=== PATIENT | female | born 2000 | race Caucasian/White ===

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

== ENCOUNTER → 2021-01-19 17:12 | Outpatient (CLI) | payer MEDICAID, SELFPAY ==
[2021-01-19 18:06] LABS: HCG,Quantitative 2479 mIU/ml (0-5.42)
== END ==
PROVIDERS: Visit Provider Obstetrics & Gynecology
DX: Z34.90 Encounter for supervision of normal pregnancy, unspecified, unspecified trimester (principal)
CPT/HCPCS: 36415; 84702

== ENCOUNTER → 2021-01-21 17:24 | Outpatient (CLI) | payer MEDICAID, SELFPAY ==
[2021-01-21 18:30] LABS: HCG,Quantitative 5449 mIU/ml (0-5.42)
== END ==
PROVIDERS: Visit Provider Obstetrics & Gynecology
DX: Z34.90 Encounter for supervision of normal pregnancy, unspecified, unspecified trimester (principal)
CPT/HCPCS: 36415; 84702

== ENCOUNTER → 2021-01-31 12:46 | Outpatient (CLI) | payer MEDICAID, SELFPAY ==
--- NOTE | 2021-01-31 12:46 | US_ITS ---
PROCEDURE: US OB <= 14 WEEKS FETUS CLINICAL INDICATION: Early OB at 6+ weeks- COMPARISON: US OBFEMAT US OB /maternal detail from 08/07/2018 FINDINGS: An intrauterine gestational sac is present with a pole with a crown-rump length of 0.37 cm correlating to gestational age of 6 weeks 1 day. heart tones are present with an FHR of 116 BPM. Yolk sac is noted. IMPRESSION: Live IUP at 6 weeks 1 day Estimated due date by Ultrasound is 09/25/2021 Dictated by: Trey Osei MD 02/01/2021 10:43 Trey Osei MD in [facility] 02/01/2021 10:43
== END ==
PROVIDERS: PCP Nurse Practitioner Family; Visit Provider Obstetrics & Gynecology
DX: Z34.90 Encounter for supervision of normal pregnancy, unspecified, unspecified trimester (principal)
CPT/HCPCS: 76801

== ENCOUNTER → 2021-02-22 15:23 | Outpatient (CLI) | payer MEDICAID, SELFPAY ==
[2021-02-22 15:43] LABS: Basophils # 0.1 K/mm3 (0-0.2); Basophils % 0.5 % (0.1-2.0); Eosinophils # 0.5 K/mm3 (0.0-0.4); Hematocrit 39.5 % (37.0-47.0); Hemoglobin 13.2 g/dL (12.2-16.2); Lymphocytes % 24.1 % (10-50); Mean Corpuscular HGB Conc 33.4 g/dL (31.8-35.4); Mean Corpuscular Hemoglobin 29.1 pg (27.0-31.2); Mean Corpuscular Volume 87.3 fl (81-99); Mean Platelet Volume 7.1 fl (7.4-10.4); Monocytes # 0.6 K/mm3 (0.1-1.0); Monocytes % 4.5 % (1.7-9.3); Neutrophils # 8.4 K/mm3 (1.8-7.8); Neutrophils % 66.9 % (37.0-80.0); Platelet Count 311 K/mm3 (142-424); Red Blood Count 4.52 M/mm3 (4.20-5.40); Red Cell Distribution Width 13.6 % (11.5-17.5); White Blood Count 12.6 K/mm3 (4.8-10.8)
[2021-02-25 06:18] LABS: HIV Screen 4th Generation wRfx Non Reactive (Non Reactive); Hepatitis B Surface Antigen Negative (Negative); Hepatitis C Antibody <0.1 s/co ratio (0.0-0.9); Rapid Plasma Reagin Ab Titer Non Reactive (NonRea<1:1)
[2021-02-25 18:01] LABS: Rubella Antibodies, IgG 3.56 index (Immune >0.99)
== END ==
PROVIDERS: Visit Provider Obstetrics & Gynecology
DX: Z34.90 Encounter for supervision of normal pregnancy, unspecified, unspecified trimester (principal)
CPT/HCPCS: 36415; 85025; 86592; 86703; 86762; 86850; 87340; 87380; G0432

== ENCOUNTER → 2021-05-04 13:49 | Outpatient (CLI) | payer MEDICAID, SELFPAY ==
--- NOTE | 2021-05-04 13:52 | US_ITS ---
PROCEDURE: US OB >= 14 WEEKS FETUS CLINICAL INDICATION: OB complete COMPARISON: US US OB <= 14 WEEKS FETUS from 01/31/2021 FINDINGS: There is a single live intrauterine gestation which is in breech presentation. Placenta is anterior and grade 1. heart and body motion noted. Cervix is closed and measures 3 cm.. Complete survey performed and was unremarkable on the submitted images as in PACS. No discrete anomalies identified on survey imaging by technologist. Active fetus. Three-vessel cord with satisfactory umbilical cord insertion. 4- chamber heart noted. Survey of brain & ventricles Unremarkable. Face and neck survey unremarkable. Diaphragm and chest views unremarkable. Abdomen: Both kidneys noted and unremarkable. Stomach noted and satisfactory. Spine: Survey of the spine satisfactory with no anomalies identified nor imaged. Both arms and legs noted. Amniotic Fluid: Adequate. Maternal adnexa: No significant findings. Measurements: Average ultrasound age 19weeks 5days. Gestational Age 19weeks 3days Estimated due date by ultrasound age 1109/23/2021. Estimated weight 298g BPD = 19weeks 6days OFD = 20weeks 1day HC = 19weeks 2days AC = 19weeks 5days FL = 19weeks 4days Growth Percentile= 51Percent% Heart Rate = 158bpm Cerebellum = 19weeks 1day Humerus = 20weeks HC/AC is 1.16 CI is 0.78 FL/BPD is 0.67 FL/AC is 0.21 IMPRESSION: Live IUP in breech presentation with an average ultrasound age of 19 weeks 5 days. No obvious anomalies. Please see above for detail. Dictated by: Trey Osei MD 05/06/2021 05:15 Trey Osei MD in [facility] 05/06/2021 05:15
== END ==
PROVIDERS: PCP Nurse Practitioner Family; Visit Provider Obstetrics & Gynecology
DX: Z34.90 Encounter for supervision of normal pregnancy, unspecified, unspecified trimester (principal)
CPT/HCPCS: 76805

== ENCOUNTER → 2021-07-11 11:35 | Outpatient (CLI) | payer MEDICAID, SELFPAY ==
[2021-07-11 12:25] LABS: Glucose,Fasting 82 mg/dl (74-100)
[2021-07-11 13:39] LABS: Glucose 1 Hour 126 mg/dL (74-100)
== END ==
PROVIDERS: Visit Provider Obstetrics & Gynecology
DX: Z34.90 Encounter for supervision of normal pregnancy, unspecified, unspecified trimester (principal)
CPT/HCPCS: 36415; 82951

== ENCOUNTER → 2021-08-19 12:52 | Outpatient (CLI) | payer MEDICAID, SELFPAY ==
--- NOTE | 2021-08-19 12:58 | US_ITS ---
PROCEDURE: US OB FOLLOW UP CLINICAL INDICATION: SGA Small for gestational FINDINGS: The following parameters are obtained: Average ultrasound age is Average 34weeks 4days Estimated due date by ultrasound is 09/26/2021. Estimated weight is 2,461g. This is 41 percentile BPD: 34weeks 4days OFD: 34 weeks 4 days HC: 34weeks 1day AC: 34weeks 5days FL: 34weeks 5days heart rate: 150bpm bpm. HC/AC: 1 Cephalic index: 0.79 FL/BPD: 0.79 FL/AC: 0.22 Amniotic fluid index: 8.88cm The femur length is 34weeks 5days There is cephalic presentation with a single live fetus noted. The cervix is not well delineated appearance and measure approximately 3 cm and closed. The placenta is anterior and grade 1 IMPRESSION: There is a single live fetus present in cephalic presentation. Average ultrasound age 34 weeks 4 days with an estimated weight 2461 g which is 41st percentile. Amniotic fluid index within normal limits at 9 cm Dictated by: Trey Osei MD 08/22/2021 09:44 Trey Osei MD in [facility] 08/22/2021 09:44
== END ==
PROVIDERS: PCP Nurse Practitioner Family; Visit Provider Obstetrics & Gynecology
DX: O36.5990 Maternal care for other known or suspected poor fetal growth, unspecified trimester, not applicable or unspecified (principal)
CPT/HCPCS: 76816

== ENCOUNTER → 2021-08-23 16:54 | Outpatient (CLI) | payer MEDICAID, SELFPAY | PROVIDERS: Visit Provider Obstetrics & Gynecology | DX: Z34.90 Encounter for supervision of normal pregnancy, unspecified, unspecified trimester (principal) | CPT/HCPCS: 86403 ==

== ENCOUNTER → 2021-09-17 18:13 | Outpatient (CLI) | payer MEDICAID, SELFPAY ==
[2021-09-17 19:01] LABS: Basophils # 0.1 K/mm3 (0-0.2); Basophils % 0.4 % (0.1-2.0); Eosinophils # 0.6 K/mm3 (0.0-0.4); Eosinophils % 3.9 % (0.1-12.0); Hematocrit 34.5 % (37.0-47.0); Hemoglobin 10.9 g/dL (12.2-16.2); Lymphocytes # 2.9 K/mm3 (0.7-4.5); Lymphocytes % 19.6 % (10-50); Mean Corpuscular HGB Conc 31.7 g/dL (31.8-35.4); Mean Corpuscular Hemoglobin 26.6 pg (27.0-31.2); Mean Corpuscular Volume 84.1 fl (81-99); Mean Platelet Volume 8.1 fl (7.4-10.4); Monocytes # 0.9 K/mm3 (0.1-1.0); Neutrophils # 10.4 K/mm3 (1.8-7.8); Neutrophils % 70.2 % (37.0-80.0); Platelet Count 390 K/mm3 (142-424); Red Cell Distribution Width 14.6 % (11.5-17.5); White Blood Count 14.8 K/mm3 (4.8-10.8)
[2021-09-17 19:06] LABS: Alanine Aminotransferase 12 U/L (12-78); Albumin Level 3.5 g/dl (3.5-5.0); Albumin/Globulin Ratio 1.1 (1.1-1.8); Alkaline Phosphatase 147 U/L (38-126); Anion Gap 12.9 mEq/L (5-15); Aspartate Amino Transferase 17 U/L (14-36); Blood Urea Nitrogen 8 mg/dl (7-17); Calcium 8.9 mg/dl (8.4-10.2); Carbon Dioxide 20 mmol/L (22.0-30.0); Chloride 107 mmol/L (98-107); Estimated Glomerular Filt Rate 154 ml/min (>60); GFR (African American) 187 ML/MIN (>60); Globulin 3.3 g/dL (1.3-3.2); Glucose 106 mg/dl (74-100); Potassium 3.9 mmoL/L (3.5-5.1); Sodium 136 mmol/L (136-145); Total Protein,Serum 6.8 g/dl (6.3-8.2)
[2021-09-17 19:08] LABS: Bilirubin,Total < 0.1 mg/dl (0.2-1.3)
== END ==
PROVIDERS: PCP Nurse Practitioner Family; Referring Provider Obstetrics & Gynecology; Visit Provider Obstetrics & Gynecology
DX: Z01.818 Encounter for other preprocedural examination (principal); Z11.52 Encounter for screening for COVID-19
CPT/HCPCS: 36415; 80053; 85025; 86850; C9803; U0003; U0005

== ENCOUNTER 2021-09-19 04:58 | Inpatient (IN) | payer MEDICAID, SELFPAY ==
--- NOTE | 2021-09-16 14:04 | SUR.PREOP ---
Spoke with BF- instructed that pt needs to come in Sunday for COVID swab
[2021-09-19] VITALS (13 sets, daily range): BP systolic 106–135; BP diastolic 56–79; PULSE 62–96; RESP 16–18; TEMP 36.3–36.7; O2SAT 98–100; BMI 101.5; BMI 46.0
[2021-09-19 06:06] LABS: Coronavirus 19, PCR Not Detected (NotDetected); Influenza A, PCR Not Detected (NotDetected); Influenza B, PCR Not Detected (NotDetected)
[2021-09-19 07:05] LABS: Amphetamine/Metha Screen,Urine Negative ng/ml (<1000)
[2021-09-19 07:06] LABS: Barbiturates Screen,Urine Negative ng/ml (<200)
[2021-09-19 07:07] LABS: Benzodiazepines Screen,Urine Negative ng/ml (<200); Methadone Screen,Urine Negative ng/ml (<300)
[2021-09-19 07:08] LABS: Cannabinoid Screen,Urine Negative ng/ml (<50)
[2021-09-19 07:09] LABS: Cocaine Screen,Urine Negative ng/ml (<300); Opiate Screen,Urine Negative ng/ml (<300)
[2021-09-19 07:10] LABS: Phencyclidine Screen,Urine Negative ng/ml (<25)
--- NOTE | 2021-09-19 07:43 | HMH.HP ---
*Admission Date: 09/19/21 *Chief complaint: elective repeat c section *History of present illness: 21 yo @ 39 weeks admitted for elective repeat c section She has a history of previous c section with G1 that was performed due to extensive genital condyloma, but no outbreaks with this ; she denies any fever/chills or respiratory symptoms Preop labs positive for covid 19 on 09/17/21 but admission labs this morning negative covid swab Preop anemia with Hgb 10.8 [facility] History Medical History: Reports:: Gastroesophageal Reflux Disease(GERD), Hypertension Denies:: Anxiety, Depression, Diabetes Mellitus Type 1, Hyperlipidemia, Migraine, MRSA, Seizures *Have you ever received a pneumonia vaccine?: No *Have you received a flu vaccine this season?: No Other Medical History: Reports: Anemia Other Surgeries: Yes: , Other Amputation: No Fractures: No - *Social History Smoking Status: Current every day smoker Tobacco Type: cigarettes # Packs/Day (cigarettes): 1 Alcohol Intake: never Substance Use Type: denies use *Occupational Status:: unemployed *Travel in the last 8 weeks: None - Psychiatric History Pschychiatric History:: Denies:: Anxiety, Depression Family Hx:: Cancer, Diabetes, Heart Attack, Hypertension, Stroke Para: 1 Review of Systems - Review of Systems Review of systems:: pertinent systems reviewed and negative unless documented below - Constitutional Denies chills, Denies fever(s) - *Respiratory Denies cough, Denies shortness of breath - *Genitourinary Denies abnormal vaginal bleeding, Denies genital lesions Meds Home Medications Medication Instructions Recorded Confirmed Type Vit/Iron Fum/Folic AC 1 tab PO DAILY 09/19/21 09/19/21 History [ Tablet] Allergies Allergy/AdvReac Type Severity Reaction Status Date / Time No Known Allergies Allergy Verified 09/09/21 13:36 Exam Vital signs and Labs for Last 24 Hours: Temp Pulse Resp BP Pulse Ox 98.1 F 96 H 17 109/79 L 98 09/19/21 06:21 09/19/21 06:21 09/19/21 06:21 09/19/21 06:21 09/19/21 06:21 Laboratory Results - last 24 hr 09/19/21 05:15: Urine Opiates Screen Negative, Urine Methadone Screen Negative, Ur Barbituates Screen Negative, Ur Phencyclidine Scrn Negative, Ur Amphetamines Screen Negative, U Benzodiazepines Scrn Negative, Urine Cocaine Screen Negative, U Marijuana (THC) Screen Negative 09/19/21 05:15: SARS-CoV-2 (PCR) Not detected, Influenza A Untype (PCR) Not detected, Influenza Type B (PCR) Not detected I & O for Last 24 hours: Intake & Output 09/16/21 09/17/21 09/18/21 09/19/21 12:59 12:59 11:59 11:59 Weight 260 lb - Constitutional no acute distress - *Routine HEENT Exam Head: Present: normocephalic Eye: Absent: scleral injection ENT: Present: mucous membranes moist - *Routine Neck Exam Present: supple. Absent: lymphadenopathy - *Routine Respiratory Exam Present: CTA bilaterally - *Routine Cardiovascular Exam Present: RRR - *Routine Abdominal Exam Present: soft, normoactive bowel sounds. Absent: tenderness - *Routine Rectal Exam Rectal:: deferred - *Routine Genitalia Exam Genitalia:: normal female - *Routine Extremities Exam Absent: cyanosis, clubbing, edema - *Routine Skin Exam Present: warm. Absent: rash - *Routine Neurological Exam Present: alert, oriented X3 Assessment and Plan (1) 39 weeks gestation of Status: Acute Category: Medical Code(s): Z3A.39 - 39 weeks gestation of (2) COVID-19 affecting in third trimester Status: Acute Category: Medical Code(s): O98.513 - Other viral diseases complicating , third trimester; U07.1 - COVID-19 (3) Anemia complicating Status: Acute Category: Medical Code(s): O99.019 - Anemia complicating , unspecified trimester (4) Morbid obesity with body mass index (BMI) of 40.0 or higher Status: Acute C
--- NOTE | 2021-09-19 09:18 | P.PN_ITS ---
[facility] Anesthesia Checklist - Patient Identification Patient Identification: Arm Band, Verbal (Name & ) - Structural Data Admitted From: Inpatient Planned Operative Procedure/s: Repeat Consent for Planned Operative Procedure(s) Verified: Yes Verified Documents: Surgical Consent - NPO Status Verified Time NPO: 00:00 - Chart Verification Results Verified: CBC, H & H, Creatinine - Additional verifications Anesthesia Reactions: No - Cardiovascular Assessment Heart Sounds: S1 & S2 - Airway Assessment C-Spine Mobility Assessed: Yes TMJ Mobility Assessed: Yes Dentition: Good Dentition - Neurological Assessment Level of Consciousness: Awake, Alert, Appropriate - Anesthesia Plan Anesthesia Risk discussed: Yes ASA Class: II Anesthesia Type: Spinal [facility] History I have reviewed the patient's past medical history: Yes Medical History: Reports:: Gastroesophageal Reflux Disease(GERD), Hypertension Denies:: Anxiety, Depression, Diabetes Mellitus Type 1, Hyperlipidemia, Migraine, MRSA, Seizures *Have you ever received a pneumonia vaccine?: No *Have you received a flu vaccine this season?: No Other Medical History: Reports: Anemia Anesthesia experience/problems:: PONV Other Surgeries: Yes: , Other Amputation: No Fractures: No - *Social History Smoking Status: Current every day smoker Tobacco Type: cigarettes # Packs/Day (cigarettes): 1 Alcohol Intake: never Substance Use Type: denies use *Occupational Status:: unemployed *Travel in the last 8 weeks: None - Psychiatric History Pschychiatric History:: Denies:: Anxiety, Depression Family Hx:: Cancer, Diabetes, Heart Attack, Hypertension, Stroke Para: 1
--- NOTE | 2021-09-19 09:20 | HMH.ANESI ---
[facility] Anesthesia Record Part I Intake, IV Amount: 1,000 Estimated blood loss (mL): 700 Urine output (mL): 200 Blood Pressure: 106/65 SaO2: 100 Pulse Rate: 70 Respiratory Rate: 16 Temperature: 97.6 F Patient is:: Awake Stable to PACU at:: 09:10
--- NOTE | 2021-09-19 09:56 | P.OP_ITS ---
Date of procedure: 09/19/21 Pre-op Diagnosis:: 1. 39 weeks gestational age 2. Previous C Section 3. Maternal obesity 4. Anemia 5. Tobacco abuse 6. Covid 19 positive Post-op Diagnosis:: same Procedure performed:: Low Transverse C Section Surgeon:: Kathleen Bazzi MD Ecclesiastical Worker(s):: [employer]:: Other Anesthesia: spinal Estimated blood loss (mL): 700 Operative findings:: vigorous female infant apgars 8 and 9 grossly normal uterus, fallopian tubes and ovaries vesico-uterine adhesions Operative note:: The patient was taken to the OR and spinal was administered without difficulty. She was prepped and draped in normal sterile fashion. A pfannenstiel skin incision was made with the scalpel and carried down to the fascia. The fascia was incised in the midline and sharply dissected off the rectus muscles. The muscles were in the midline and the peritoneum was entered sharply and extended bluntly. The Jesús-O self retaining retractor was placed in the abdomen and a bladder flap was created. The bladder was densely adhesed to the lower uterine segment from the previous c section, which were taken down sharply without complication. The uterus was incised in the lower uterine segment in a transverse fashion and extended bluntly. Amniotomy was performed and clear f luid noted. The infant was delivered in controlled fashion, without complication or shoulder dystocia. The infant was vigorous at and handed to awaiting pumping station engineer for evaluation after cord clamped and cut. Cord blood was collected and a cord segment was preserved. The placenta was manually extracted and noted to be intact. The uterus was repaired with 0-vicryl in a running/locked fashion. The peritoneum was closed with 2-0 vicryl in a running fashion. The fascia was closed with #1 vicryl in a running fashion. The subcutaneous fat was closed with 2-0 vicryl in an interrupted fashion. The skin was closed with rajan. The patient tolerated the procedure well. Sponge, lap, needle and instrument counts were correct x 2. She was taken to PACU awake and in stable condition. Condition: stable Disposition: PACU Specimens:: placenta Complications:: none
--- NOTE | 2021-09-19 10:17 | SUR.PHASEI ---
0940- spoke with about the current QBL for the OR and PACU. Dr. Bazzi stated that she did not want to give methergine at this time and stated that she will get an H@H taken on the floor at a later time. HOLD PRBC order submitted, 18G IV started.
--- NOTE | 2021-09-19 11:19 | P.PN_ITS ---
[facility] Anesthesia Record Part II Discharge Time: 09:50 Destination: Obstetric PACU nurse assessment reviewed?: Yes Patient Condition:: Good Anesthesia Complications:: None Swallowing reflex intact?: Yes Cyanosis?: No Blood Pressure: 111/68 Pulse Rate: 64 Temperature: 97.4 F Mental Status: Alert & Oriented Pain level:: 0 Nausea and/or vomitting:: None Intake, IV Amount: 0
[2021-09-19 11:20] LABS: Microscopic, Urine URINE MICROSCOPIC (MICROSCOPIC)
[2021-09-19 11:26] LABS: Appearance,Urine CLEAR (Clear); Bilirubin,Urine Negative (Negative); Blood, Urine Negative (Negative); Color,Urine YELLOW (Yellow); Glucose,Urine (UA) Negative (Negative); Ketones,Urine Negative (Negative); Leukocyte Esterase,Urine Negative (Negative); Nitrate,Urine Negative (Negative); Protein,Urine TRACE (Negative); Specific Gravity, Urine >= 1.030 (1.005-1.030); Urobilinogen,Urine 0.2 EU/dl (0.2)
[2021-09-19 11:49] LABS: Amorphous Sediment,Urine Trace /lpf; Squamous Epithelial Cell,Urine Occasional #/hpf (0-5)
[2021-09-19 15:10] LABS: Hematocrit 31.1 % (37.0-47.0); Hemoglobin 9.7 g/dL (12.2-16.2)
[2021-09-20 03:20] VITALS: BP 118/65; PULSE 82; RESP 18; TEMP 36.7; O2SAT 99
[2021-09-20 06:56] LABS: Hematocrit 30.1 % (37.0-47.0); Hemoglobin 9.4 g/dL (12.2-16.2)
--- NOTE | 2021-09-20 11:01 | P.PN_ITS ---
Internal Medicine - PN: Subj *Date: 09/20/21 *Time: 11:01 Interval history: POD #1 repeat LTCS no unusual complaints tolerating regular diet ambulating and voiding without difficulty pain control sufficient asymptomatic with [id number] anemia Exam Vital signs and Labs for Last 24 Hours: Temp Pulse Resp BP Pulse Ox 98.0 F 82 18 118/65 99 09/20/21 03:20 09/20/21 03:20 09/20/21 03:20 09/20/21 03:20 09/20/21 03:20 Laboratory Results - last 24 hr 09/19/21 05:15: Urine Color Yellow, Urine Appearance Clear, Urine pH 6.0, Ur Specific [place] >= 1.030, Urine Protein Trace, Urine Glucose (UA) Negative, Urine Ketones Negative, Urine Blood Negative, Urine Nitrate Negative, Urine Bilirubin Negative, Urine Urobilinogen 0.2, Ur Leukocyte Esterase Negative, Urine RBC None, Urine WBC None, Ur Squamous Epith Cells Occasional, Amorphous Sediment Trace 09/19/21 10:28: Blood Type O Positive, Antibody Screen Negative, Crossmatch (AHG) See Detail 09/19/21 12:49: Blood Type Confirm O Positive 09/19/21 14:55: Hgb 9.7 L, Hct 31.1 L 09/20/21 06:22: Hgb 9.4 L, Hct 30.1 L I & O for Last 24 hours: Intake & Output 09/17/21 09/18/21 09/19/21 09/20/21 12:59 11:59 11:59 11:59 Intake Total 1000 / 1000 Output Total 200 / 200 Balance 800 / 800 Weight 260 lb Microbiology Reports for the Last 24 Hours: Microbiology 09/19/21 07:45 Nasopharyngeal Coronavirus COVID-19 PCR - Final Narrative: CONSTITUTIONAL: no acute distress HEENT: mucous membranes moist PULMONARY: breathing unlabored without audible wheezes CV: no tachycardia or visible JVD; normal LE peripheral pulses ABD: soft, ND; appropriately tender but no rebound/guarding : fundus firm at/below umbilicus SKIN: incision well approximated with no drainage, erythema or induration EXT: 1+ edema LEs NEURO: alert/oriented, no altered mental status PSYCH: appropriate mood and demeanor Assessment and Plan (1) 39 weeks gestation of Status: Acute Category: Medical Code(s): Z3A.39 - 39 weeks gestation of (2) COVID-19 affecting in third trimester Status: Acute Category: Medical Code(s): O98.513 - Other viral diseases complicating , third trimester; U07.1 - COVID-19 (3) Anemia complicating Status: Acute Category: Medical Code(s): O99.019 - Anemia complicating , unspecified trimester (4) Morbid obesity with body mass index (BMI) of 40.0 or higher Status: Acute Category: Medical Code(s): E66.01 - Morbid (severe) obesity due to excess calories (5) Previous section Status: Acute Category: Surgical Code(s): Z98.891 - History of uterine scar from previous surgery (6) Vapes nicotine containing substance Status: Acute Category: Social Hx Code(s): Z72.0 - Tobacco use - Assessment and plan all Dx Assessment and Plan for all problems:: routine postop care anticipate discharge home tomorrow
[2021-09-20 19:30] VITALS: BP 121/74; PULSE 68; RESP 18; TEMP 36.7; O2SAT 100
[2021-09-21 04:10] VITALS: BP 117/65; PULSE 78; RESP 18; TEMP 36.7; O2SAT 99
--- NOTE | 2021-09-21 12:16 | HMH.DCSUM ---
General - General Admission date:: 09/19/21 Discharge date: 09/21/21 HPI HPI: 21 yo @ 39 weeks admitted for elective repeat c section She has a history of previous c section with G1 that was performed due to extensive genital condyloma, but no outbreaks with this ; she denies any fever/chills or respiratory symptoms Preop labs positive for covid 19 on 09/17/21 but admission labs this morning negative covid swab Preop anemia with Hgb 10.8 Hospital Course Hospital Course: course uneventful she is tolerating regular diet ambulating and voiding without difficulty asymptomatic with anemia; lochia appropriate discharged home in stable condition on POD #2 Rhogam Administration: Not Indicated Objective Vital signs: Temp Pulse Resp BP Pulse Ox 98.1 F 78 18 117/65 99 09/21/21 04:10 09/21/21 04:10 09/21/21 04:10 09/21/21 04:10 09/21/21 04:10 Narrative: CONSTITUTIONAL: no acute distress HEENT: mucous membranes moist PULMONARY: breathing unlabored without audible wheezes CV: no tachycardia or visible JVD; normal LE peripheral pulses ABD: soft, ND; appropriately tender but no rebound/guarding : fundus firm at/below umbilicus SKIN: incision well approximated with no drainage, erythema or induration EXT: 1+ edema LEs NEURO: alert/oriented, no altered mental status PSYCH: appropriate mood and demeanor Results Labs on day of discharge: Preliminary micro results at discharge 09/19/21 07:59 Urine Culture - Preliminary Urine,Catheterized NO GROWTH AFTER 24 HOURS DS: Diagnosis - Discharge Diagnosis (1) 39 weeks gestation of Status: Acute (2) COVID-19 affecting in third trimester Status: Acute (3) Anemia complicating Status: Acute (4) Morbid obesity with body mass index (BMI) of 40.0 or higher Status: Acute (5) Previous section Status: Acute (6) Vapes nicotine containing substance Status: Acute Discharge Plan - Patient Discharge Instructions ACTIVITY: Continue current activity DIET: regular diet - Follow up Plan Disposition: Home, Self-Care Condition at discharge:: Stable Home Medications: Home Medications Medication Instructions Recorded Confirmed Type Vit/Iron Fum/Folic AC 1 tab PO DAILY 09/19/21 09/19/21 History [ Tablet] Ibuprofen [Motrin 400mg 800 mg PO Q6HP PRN #30 tab 09/21/21 Rx tablet] Oxycodone HCl [OxyIR 5mg tablet] 5 mg PO Q6HP PRN #30 tablet 09/21/21 Rx Prescriptions/Medication Reconciliation: New Acetaminophen [Acetaminophen 325mg tab] 650 mg PO Q4HP PRN tablet PRN Reason: Mild Pain Oxycodone HCl [OxyIR 5mg tablet] 5 mg PO Q6HP PRN #30 tablet PRN Reason: Moderate To Severe Pain Ibuprofen [Motrin 400mg tablet] 800 mg PO Q6HP PRN #30 tab PRN Reason: Mild To Moderate Pain Continued Vit/Iron Fum/Folic AC [ Tablet] 1 tab PO DAILY - Problem Reconciliation Problems Reviewed?: Yes
--- NOTE | 2021-09-24 13:40 | PC.NURSE ---
1230 Pt presents to department for staple removal. LTV incision C/D/I with no s/s infection. Incision cleaned with hydrogen peroxide and sterile water, tolerated well by pt. Esther removed without difficulty. Steristrips applied. Discussed caring for the incision and surgical site infections with pt, no questions/concerns.
== END 2021-09-21 16:10 | disposition home or self-care (01) | DRG 786 ==
PROVIDERS: Admitting Provider Obstetrics & Gynecology; Visit Provider Obstetrics & Gynecology
PROC: 10D00Z1 Extraction of Products of Conception, Low, Open Approach (ICD-10-PCS; CPT 59514; principal; 2021-09-19 07:30)
DX: O34.211 Maternal care for low transverse scar from previous cesarean delivery (principal); U07.1 COVID-19; O98.32 Other infections with a predominantly sexual mode of transmission complicating childbirth; O98.513 Other viral diseases complicating pregnancy, third trimester; N85.8 Other specified noninflammatory disorders of uterus; A63.0 Anogenital (venereal) warts; Z3A.39 39 weeks gestation of pregnancy; Z37.0 Single live birth; F17.290 Nicotine dependence, other tobacco product, uncomplicated; O99.019 Anemia complicating pregnancy, unspecified trimester; D64.9 Anemia, unspecified
CPT/HCPCS: 59514; 36415; 59025; 80053; 80305; 81001; 85014; 85018; 85025; 86850; 87086; C9803; J2405; U0003; U0005

== ENCOUNTER 2023-05-27 11:03 | Observation (INO) | payer MEDICAID, SELFPAY ==
[2023-05-27] VITALS (7 sets, daily range): BP systolic 102–124; BP diastolic 57–71; PULSE 60–103; RESP 16–20; TEMP 36.4–37; O2SAT 95–98; BMI 40.7; BMI 41.8
--- NOTE | 2023-05-27 11:09 | PC.NURSE ---
ER MD Elam at
--- NOTE | 2023-05-27 11:13 | CT_ITS ---
PROCEDURE INFORMATION: Exam: CT Neck With Contrast Exam date and time: 05/27/2023 11:59 AM Age: 23 years old Clinical indication: Abscess, tonsil; Additional info: Bilateral tonsillar swelling, concern L abscess TECHNIQUE: Imaging protocol: Computed tomography of the neck with contrast. Radiation optimization: All CT scans at this facility use at least one of these dose optimization techniques: automated exposure control; mA and/or kV adjustment per patient size (includes targeted exams where dose is matched to clinical indication); or iterative reconstruction. Contrast material: ISOVUE; Contrast volume: 75 ml; Contrast route: IV; REPORTING DATA: Count of CT and Cardiac NM exams in prior 12 months: This patient has received 0 known CTs and 0 known cardiac nuclear medicine studies in the 12 months prior to the current study. COMPARISON: No relevant prior studies available. FINDINGS: Pharynx: There is relatively symmetric prominence and heterogeneity of the palatine tonsils and adenoids. No drainable fluid collection is appreciated. The airways remain patent is narrowed. The epiglottis has a normal appearance. Larynx: Larynx is unremarkable. Prevertebral and retropharyngeal spaces: Unremarkable. Salivary glands: Normal. Glands are normal in size. Thyroid: Normal. No enlarged or calcified nodules. Lymph nodes: Prominent symmetric probably reactive level 2 cervical lymphadenopathy is noted. Trachea: Patent. Lungs: Unremarkable as visualized. Bones/joints: Unremarkable. No acute fracture. Soft tissues: Unremarkable. No significant soft tissue swelling. IMPRESSION: Severe tonsillitis with hypertrophy of the adenoids. No drainable fluid collection at this time. Probably reactive prominent cervical lymphadenopathy.
--- NOTE | 2023-05-27 11:18 | HMH.EDGENADL ---
Discharge Plan Disposition Patient Disposition: Admitted Condition: Fair Chief Complaint: PAIN Prescriptions Prescriptions: No Action misoprostol [Cytotec] 200 mcg tablet 200 mcg PO BID Qty: 120 2RF Rx Instructions: 1 pill the night before and one pill the morning of acetaminophen 325 MG tablet 650 mg PO Q4HP PRN (Reason: Mild Pain) 0RF ibuprofen 400 MG tablet 800 mg PO Q6HP PRN (Reason: Mild To Moderate Pain) Qty: 30 0RF oxycodone 5 MG tablet 5 mg PO Q6HP PRN (Reason: Moderate To Severe Pain) Qty: 30 0RF Referrals Follow up/Referrals: Lona Fonseca [Primary Care Provider] - See instructions Clinical Impressions Clinical Impression: Pharyngitis, Hypovolemia Discharge ED Provider: Manjinder Elam [facility] Adult HPI General Chief complaint: PAIN Stated complaint: sore throat w/blisters Time Seen by Provider: 05/27/23 11:07 History of Present Illness HPI narrative: Patient is a 23-year-old female with no pertinent past medical history who presents emergency department for evaluation of sore throat. Onset was acute, over the last 48 hours, rapid progression overnight. Patient has had difficulty swallowing and had to spit her saliva out. Significant pain with swallowing. Anterior neck feels sore with ranging however range of motion is preserved. Feels as if throat is swelling shut but has no overt difficulty breathing. Denies cough, abdominal pain, other acute complaints at this time. Related Data Previous Rx's Medication Instructions Recorded acetaminophen 325 mg tablet 650 mg PO Q4HP PRN Mild Pain 09/21/21 ibuprofen 400 mg tablet 800 mg PO Q6HP PRN Mild To 09/21/21 Moderate Pain #30 tabs oxycodone 5 mg tablet 5 mg PO Q6HP PRN Moderate To 09/21/21 Severe Pain #30 tabs misoprostol 200 mcg tablet 200 mcg PO BID #120 tabs 10/20/21 (Cytotec) Allergies Allergy/AdvReac Type Severity Reaction Status Date / Time No Known Allergies Allergy Verified 10/20/21 09:48 [facility] Disclaimer: The information contained in this section may have been updated after the patient was seen, as this information can be updated by other users. Social History Smoking Status: Never smoker alcohol intake: never substance use type: denies use current occupational status: unemployed Travel in the last 8 weeks: None ROS Obtained: Yes Systems reviewed as appropriate & no additional complaints except as documented Physical Exam General General appearance: alert, in no apparent distress and other (Leaning forward in bed) Head Head exam: atraumatic and normocephalic Eye Eye exam: Present PERRL and EOMI ENT ENT exam: Present mucous membranes moist; Absent normal oropharynx (Asymmetrically severely enlarged tonsils left greater than right, tonsils are touching with overlying purulence) or TM's normal bilaterally (Right serous middle ear effusion) Neck Neck exam: Present full ROM and lymphadenopathy Chest Chest inspection: Present normal inspection and symmetric chest wall rise Respiratory Respiratory exam: Present normal lung sounds bilaterally; Absent respiratory distress or stridor Cardiovascular Cardiovascular exam: Present regular rate and normal rhythm Abdominal Exam Abdominal exam: Present soft; Absent tenderness Extremities Exam Extremities exam: Present normal inspection Neurological Exam Neurological exam: Present alert and oriented X3 Psychiatric Psychiatric exam: Present normal affect Skin Skin exam: Present warm and dry Medical Decision Making Jose Inquiry Pt receiving controlled substance: No Vital Signs: 05/27/23 11:18 Temperature 98.5 F Temperature Source Oral Pulse Rate [Left Radial] 103 H Respiratory Rate 20 Blood Pressure [Right Arm] 120/71 Blood Pressure Mean [Right Arm] 87 02 Sat by Pulse Oximetry 96 Oxygen Delivery Method Room Air Lab Data Lab Results 05/27/23 11:15: Group A Strep Rapid Positive A 05/27/23 11:20: WBC 13.0 H
--- NOTE | 2023-05-27 11:20 | PC.NURSE ---
ER MD Elam gave verbal order for magic mouth wash (with lidocaine and maalox in it), contacted pharmacy to ask them to mix it.
[2023-05-27 11:32] LABS: Basophils # 0.1 K/mm3 (0-0.2); Basophils % 0.4 % (0.1-2.0); Eosinophils # 0.6 K/mm3 (0.0-0.4); Eosinophils % 4.4 % (0.1-12.0); Hematocrit 42.5 % (37.0-47.0); Hemoglobin 13.7 g/dL (12.2-16.2); Lymphocytes # 1.6 K/mm3 (0.7-4.5); Lymphocytes % 12.4 % (10-50); Mean Corpuscular HGB Conc 32.4 g/dL (31.8-35.4); Mean Corpuscular Hemoglobin 28.8 pg (27.0-31.2); Mean Platelet Volume 7.8 fl (7.4-10.4); Monocytes # 0.8 K/mm3 (0.1-1.0); Monocytes % 6.1 % (1.7-9.3); Neutrophils % 76.8 % (37.0-80.0); Platelet Count 267 K/mm3 (142-424); Red Blood Count 4.77 M/mm3 (4.20-5.40); Red Cell Distribution Width 12.9 % (11.5-17.5)
[2023-05-27 11:35] LABS: Strep Scrn Group A (Rapid) Positive (Negative)
[2023-05-27 11:40] LABS: Chloride 111 mmol/L (98-107)
[2023-05-27 11:41] LABS: Sodium 141 mmol/L (136-145)
[2023-05-27 11:43] LABS: Blood Urea Nitrogen 6 mg/dl (7-17); Creatinine Clearance Estimated 204 mL/min (50-200); Estimated Glomerular Filt Rate 103 ml/min (>60); GFR (African American) 124 ML/MIN (>60); HCG Qualitative, Serum Negative (Negative)
[2023-05-27 11:44] LABS: Alanine Aminotransferase 67 U/L (12-78); Albumin Level 4.1 g/dl (3.5-5.0); Albumin/Globulin Ratio 1.1 (1.1-1.8); Alkaline Phosphatase 120 U/L (38-126); Anion Gap 12.8 mEq/L (5-15); Aspartate Amino Transferase 44 U/L (14-36); Bilirubin,Total 0.5 mg/dl (0.2-1.3); Carbon Dioxide 21 mmol/L (22.0-30.0); Globulin 3.8 g/dL (1.3-3.2); Potassium 3.8 mmoL/L (3.5-5.1); Total Protein,Serum 7.9 g/dl (6.3-8.2)
[2023-05-27 11:50] LABS: Calcium 9.3 mg/dl (8.4-10.2); Glucose 106 mg/dl (74-100)
--- NOTE | 2023-05-27 11:57 | PC.NURSE ---
patient to ct
--- NOTE | 2023-05-27 12:43 | PC.NURSE ---
DR LLAMAS SPOKE WITH HOSPITALIST ABOUT POSSIBLE ADMISSION HE IS GONNA COME DOWN AND LOOK AT PT AND THEN MAKE HIS DECISION
--- NOTE | 2023-05-27 13:28 | EXP.HP ---
History of Present Illness *Admission Date: 05/27/23 *Reason for visit:: Severe throat pain and fevers x4 days *History of present illness: 23-year-old female, morbidly obese, history of recurrent pharyngitis and tonsillitis, presenting to ER with significant sore throat and fevers as high as 102 Fahrenheit at home x4 days. Evaluation consistent with severe tonsillitis. Initially in the ER patient was not able to manage her secretions due to significant pain. She was not hypoxic. After getting the 10 mg of IV Decadron patient's symptoms improved. She is currently able to maintain her secretions and tolerating clear liquid diet. Her pain subsided after using the lidocaine viscous. She is currently afebrile. She is not complaining of any joint pains but feels fatigued and tired, no new skin rash. She reports having recurrent episodes of tonsillitis in the past that were all treated with outpatient antibiotics but none of them were this severe. Patient able to talk to me in full sentences. She denies any sore throat. She was able to drink a glass of water without any difficulty. She is breathing fine and not complaining of any shortness of breath or choking sensation. She denies any current fevers or chills. She denies any antibiotic allergies [facility] Disclaimer: The information contained in this section may have been updated after the patient was seen, as this information can be updated by other users. Social History Smoking Status: Never smoker alcohol intake: never substance use type: denies use current occupational status: unemployed Travel in the last 8 weeks: None Review of Systems Review of Systems Review of systems (narrative): Review of systems negative other than those mentioned in the HPI Meds Home Medications and Allergies Home Medications Medication Instructions Recorded Confirmed Type acetaminophen 325 mg tablet 650 mg PO Q4HP PRN Mild Pain 09/21/21 10/20/21 Rx ibuprofen 400 mg tablet 800 mg PO Q6HP PRN Mild To 09/21/21 10/20/21 Rx Moderate Pain #30 tabs oxycodone 5 mg tablet 5 mg PO Q6HP PRN Moderate To 09/21/21 10/20/21 Rx Severe Pain #30 tabs misoprostol 200 mcg tablet 200 mcg PO BID #120 tabs 10/20/21 10/20/21 Rx (Cytotec) New Prescriptions to Start Prescriptions: Allergies Allergy/AdvReac Type Severity Reaction Status Date / Time No Known Allergies Allergy Verified 10/20/21 09:48 Exam Data for Last 24 hours Vital signs and Labs for Last 24 Hours: Temp Pulse Resp BP Pulse Ox O2 Del Method 98.5 F 103 H 20 120/71 96 Room Air 05/27/23 11:18 05/27/23 11:18 05/27/23 11:18 05/27/23 11:18 05/27/23 11:18 05/27/23 11:18 Laboratory Results - last 24 hr 05/27/23 11:15: Group A Strep Rapid Positive A 05/27/23 11:20: WBC 13.0 H, RBC 4.77, Hgb 13.7, Hct 42.5, MCV 89.0, MCH 28.8, MCHC 32.4, RDW 12.9, Plt Count 267, MPV 7.8, Neut % (Auto) 76.8, Lymph % (Auto) 12.4, [place] % (Auto) 6.1, Eos % (Auto) 4.4, Baso % (Auto) 0.4, Neut # (Auto) 10.0 H, Lymph # (Auto) 1.6, [place] # (Auto) 0.8, Eos # (Auto) 0.6 H, Baso # (Auto) 0.1, Sodium 141, Potassium 3.8, Chloride 111 H, Carbon Dioxide 21 L, Anion Gap 12.8, BUN 6 L, Creatinine 0.70, Estimated Creat Clear 204, Estimated GFR 103, Est GFR ( Amer) 124, Glucose 106 H, Calcium 9.3, Total Bilirubin 0.5, AST 44 H, ALT 67, Alkaline Phosphatase 120, C-Reactive Protein 68.0 H, Total Protein 7.9, Albumin 4.1, Globulin 3.8 H, Albumin/Globulin Ratio 1.1, Serum HCG, Qual Negative I & O for Last 24 hours: Intake & Output 05/24/23 05/25/23 05/26/23 05/27/23 23:59 23:59 23:59 23:59 Weight 104.326 kg Constitutional Constitutional: mild distress (Due to pain) and morbidly obese *Routine HEENT Exam Head: Present normocephalic and atraumatic Eye: Present EOMI and PERRL ENT: Present mucous membranes moist Comments: Features of bilateral tonsillitis with exudates seen on exam *Routine Neck Exam Neck: Present
--- NOTE | 2023-05-27 13:28 | PC.NURSE ---
notified warehouse shipper of admission.
[2023-05-27 13:38] LABS: Coronavirus 19, PCR Not Detected (NotDetected); Influenza A, PCR Not Detected (NotDetected); Influenza B, PCR Not Detected (NotDetected)
--- NOTE | 2023-05-27 14:02 | PC.NURSE ---
report called to Vicente Vidal rn
--- NOTE | 2023-05-27 17:37 | PC.NURSE ---
new admit this shift. ate most of her diner tray. pt stated that she still has some trouble swallowing but that is has improved since medication admin. nsr on tele o2 sat maintaining in high 90's. lung sounds clear on auscultation. currently talking on phone with family members.
[2023-05-28] VITALS: BP 113/70; PULSE 72; PULSE 80; RESP 19; TEMP 36.9; O2SAT 97
--- NOTE | 2023-05-28 00:14 | P.PN_ITS ---
Subjective *Date: 05/28/23 *Time: 00:14 Exam Data for Last 24 hours Vital signs and Labs for Last 24 Hours: Temp Pulse Resp BP Pulse Ox O2 Del Method 98.6 F 81 20 124/71 97 Room Air 05/27/23 20:00 05/27/23 20:00 05/27/23 20:00 05/27/23 20:00 05/27/23 20:00 05/27/23 23:00 Laboratory Results - last 24 hr 05/27/23 11:15: Group A Strep Rapid Positive A 05/27/23 11:20: WBC 13.0 H, RBC 4.77, Hgb 13.7, Hct 42.5, MCV 89.0, MCH 28.8, MCHC 32.4, RDW 12.9, Plt Count 267, MPV 7.8, Neut % (Auto) 76.8, Lymph % (Auto) 12.4, [place] % (Auto) 6.1, Eos % (Auto) 4.4, Baso % (Auto) 0.4, Neut # (Auto) 10.0 H, Lymph # (Auto) 1.6, [place] # (Auto) 0.8, Eos # (Auto) 0.6 H, Baso # (Auto) 0.1, Sodium 141, Potassium 3.8, Chloride 111 H, Carbon Dioxide 21 L, Anion Gap 12.8, BUN 6 L, Creatinine 0.70, Estimated Creat Clear 204, Estimated GFR 103, Est GFR ( Amer) 124, Glucose 106 H, Calcium 9.3, Total Bilirubin 0.5, AST 44 H, ALT 67, Alkaline Phosphatase 120, C-Reactive Protein 68.0 H, Total Protein 7.9, Albumin 4.1, Globulin 3.8 H, Albumin/Globulin Ratio 1.1, Serum HCG, Qual Negative 05/27/23 13:33: SARS-CoV-2 (PCR) Not detected, Influenza A Untype (PCR) Not detected, Influenza Type B (PCR) Not detected I & O for Last 24 hours: Intake & Output 05/25/23 05/26/23 05/27/23 05/28/23 23:59 23:59 23:59 23:59 Intake Total 480 / 480 Output Total 0 / 0 Balance 480 / 480 Weight 107.218 kg Assessment and Plan *Assessment and plan Plan Ms. Pham is a 23 year old female with a past medical history of morbid obesity and recurrent pharyngitis and tonsillitis. She presented with fever and sore throate and admitted on 05/27 with severe tonsillitis and there was a concern for impending airway obstruction but she improved after a dose of IV decadron 10mg #sepsis secondary to acute tonsillitis -Will discontinue IV decadron this morning. -Continue Unasyn 3g q6h -Continue Toradol q8h -plan to discharge the patient to complete 14 day course of antibiotics with Augmentin 875mg BID and possibly steroids. #morbid obesity -complicates all aspects of care full code dvt ppx: lovenox subcu
[2023-05-28 04:00] VITALS: BP 131/80; PULSE 80; RESP 19; TEMP 36.9; O2SAT 100; BMI 41.8
[2023-05-28 04:51] VITALS: PULSE 60
[2023-05-28 07:04] LABS: Basophils % 0.2 % (0.1-2.0); Eosinophils % 0.2 % (0.1-12.0); Hematocrit 40.4 % (37.0-47.0); Lymphocytes # 1.8 K/mm3 (0.7-4.5); Lymphocytes % 11.9 % (10-50); Mean Corpuscular HGB Conc 32.1 g/dL (31.8-35.4); Mean Corpuscular Hemoglobin 28.9 pg (27.0-31.2); Mean Corpuscular Volume 89.9 fl (81-99); Mean Platelet Volume 7.8 fl (7.4-10.4); Monocytes # 0.8 K/mm3 (0.1-1.0); Monocytes % 5.3 % (1.7-9.3); Neutrophils # 12.3 K/mm3 (1.8-7.8); Neutrophils % 82.3 % (37.0-80.0); Platelet Count 307 K/mm3 (142-424); Red Blood Count 4.49 M/mm3 (4.20-5.40); Red Cell Distribution Width 12.8 % (11.5-17.5); White Blood Count 14.9 K/mm3 (4.8-10.8)
--- NOTE | 2023-05-28 07:14 | HMH.PHAINT1 ---
Pharmacy Intervention Comments: Patient takes no home medications besides the Depo shot every 3 months. - Boyd Hamilton, Pharm Student
[2023-05-28 07:19] LABS: Anion Gap 12.4 mEq/L (5-15); Blood Urea Nitrogen 10 mg/dl (7-17); Calcium 9.1 mg/dl (8.4-10.2); Carbon Dioxide 19 mmol/L (22.0-30.0); Chloride 112 mmol/L (98-107); Creatinine Clearance Estimated 114 mL/min (50-200); Estimated Glomerular Filt Rate 123 ml/min (>60); GFR (African American) 149 ML/MIN (>60); Glucose 129 mg/dl (74-100); Potassium 4.4 mmoL/L (3.5-5.1); Sodium 139 mmol/L (136-145)
[2023-05-28 07:37] VITALS: BP 127/87; PULSE 79; RESP 18; TEMP 36.8; O2SAT 91
[2023-05-28 08:00] VITALS: PULSE 60
--- NOTE | 2023-05-28 09:19 | EXP.DC.SUM ---
General Admission date:: 05/27/23 Discharge date: 05/28/23 HPI HPI HPI: 23-year-old female, morbidly obese, history of recurrent pharyngitis and tonsillitis, presenting to ER with significant sore throat and fevers as high as 102 Fahrenheit at home x4 days. Evaluation consistent with severe tonsillitis. Initially in the ER patient was not able to manage her secretions due to significant pain. She was not hypoxic. After getting the 10 mg of IV Decadron patient's symptoms improved. She is currently able to maintain her secretions and tolerating clear liquid diet. Her pain subsided after using the lidocaine viscous. She is currently afebrile. She is not complaining of any joint pains but feels fatigued and tired, no new skin rash. She reports having recurrent episodes of tonsillitis in the past that were all treated with outpatient antibiotics but none of them were this severe. Patient able to talk to me in full sentences. She denies any sore throat. She was able to drink a glass of water without any difficulty. She is breathing fine and not complaining of any shortness of breath or choking sensation. She denies any current fevers or chills. She denies any antibiotic allergies Hospital Course Hospital Course Hospital Course: Ms. Pham is a 23 year old female with a past medical history of morbid obesity and recurrent pharyngitis and tonsillitis. She presented with fever and sore throat and admitted on 05/27 with severe tonsillitis and there was a concern for impending airway obstruction but this improved after receiving IV decadron #sepsis secondary to acute group a tonsillitis -patient received unasyn throughout the hospital course -by the day of discharge the patient was feeling much better with significant decrease in swelling of throat. -blood cultures and throat culture were pending at time of discharge. she was positive for group a strep. She will follow up with e/n/t Dr. Zaidi tomorrow. -plan to discharge the patient to complete 14 day course of antibiotics with Augmentin 875mg BID and 5 days of prednisone #morbid obesity -complicates all aspects of care Exam Data for Last 24 hours Vital signs and Labs for Last 24 Hours: Temp Pulse Resp BP Pulse Ox O2 Del Method 98.3 F 79 18 127/87 91 L Room Air 05/28/23 07:37 05/28/23 07:37 07/17/23 07:37 05/28/23 07:37 05/28/23 07:37 05/28/23 07:37 Laboratory Results - last 24 hr 05/27/23 11:15: Group A Strep Rapid Positive A 05/27/23 11:20: WBC 13.0 H, RBC 4.77, Hgb 13.7, Hct 42.5, MCV 89.0, MCH 28.8, MCHC 32.4, RDW 12.9, Plt Count 267, MPV 7.8, Neut % (Auto) 76.8, Lymph % (Auto) 12.4, [place] % (Auto) 6.1, Eos % (Auto) 4.4, Baso % (Auto) 0.4, Neut # (Auto) 10.0 H, Lymph # (Auto) 1.6, [place] # (Auto) 0.8, Eos # (Auto) 0.6 H, Baso # (Auto) 0.1, Sodium 141, Potassium 3.8, Chloride 111 H, Carbon Dioxide 21 L, Anion Gap 12.8, BUN 6 L, Creatinine 0.70, Estimated Creat Clear 204, Estimated GFR 103, Est GFR ( Amer) 124, Glucose 106 H, Calcium 9.3, Total Bilirubin 0.5, AST 44 H, ALT 67, Alkaline Phosphatase 120, C-Reactive Protein 68.0 H, Total Protein 7.9, Albumin 4.1, Globulin 3.8 H, Albumin/Globulin Ratio 1.1, Serum HCG, Qual Negative 05/27/23 13:33: SARS-CoV-2 (PCR) Not detected, Influenza A Untype (PCR) Not detected, Influenza Type B (PCR) Not detected 05/28/23 06:44: WBC 14.9 H, RBC 4.49, Hgb 13.0, Hct 40.4, MCV 89.9, MCH 28.9, MCHC 32.1, RDW 12.8, Plt Count 307, MPV 7.8, Neut % (Auto) 82.3 H, Lymph % (Auto) 11.9, [place] % (Auto) 5.3, Eos % (Auto) 0.2, Baso % (Auto) 0.2, Neut # (Auto) 12.3 H, Lymph # (Auto) 1.8, [place] # (Auto) 0.8, Eos # (Auto) 0.0, Baso # (Auto) 0.0, Sodium 139, Potassium 4.4, Chloride 112 H, Carbon Dioxide 19 L, Anion Gap 12.4, BUN 10 D, Creatinine 0.60, Estimated Creat Clear 114, Estimated GFR 123, Est GFR ( Amer) 149 D, Glucose 129 H D, Calcium 9.1 I & O for Last 24 hours: Intake & Output 05/25/23 05/26/23 05/27/23 05/28/23 23:59 23:59 2
--- NOTE | 2023-05-28 09:41 | HMH.PHAINT1 ---
Pharmacy Intervention Comments: Discharge medications were reviewed with patient - prednisone and augmentin started, told to watch for N/D
--- NOTE | 2023-05-29 15:44 | CARE MANAGER ---
Contacted patient related to hospital discharge. She states she is doing better. She got her new medications and went to a follow up appointment this morning. Scheduled to have tonsillectomy later in June. Denies any issues. SYMONE Shaw
== END 2023-05-28 09:59 | disposition home or self-care (01) ==
LOC: ER 13:17 → 2ND 14:13
PROVIDERS: Admitting Provider Internal Medicine; Emergency Provider Emergency Medicine; PCP Nurse Practitioner Family; Visit Provider Internal Medicine
DX: A41.9 Sepsis, unspecified organism (principal); E86.1 Hypovolemia; Z68.41 Body mass index [BMI] 40.0-44.9, adult; J03.80 Acute tonsillitis due to other specified organisms; E66.01 Morbid (severe) obesity due to excess calories
CPT/HCPCS: 36415; 70491; 80048; 80053; 84703; 85025; 86140; 87040; 87070; 87430; 87636; 99291; G0378; J0131; Q9967

== ENCOUNTER → 2023-07-03 14:01 | Outpatient (CLI) | payer MEDICAID, SELFPAY ==
[2023-07-03 14:35] LABS: Basophils % 0.3 % (0.1-2.0); Eosinophils # 0.4 K/mm3 (0.0-0.4); Eosinophils % 3.5 % (0.1-12.0); Hematocrit 42.7 % (37.0-47.0); Hemoglobin 14.2 g/dL (12.2-16.2); Lymphocytes # 2.8 K/mm3 (0.7-4.5); Lymphocytes % 25.6 % (10-50); Mean Corpuscular HGB Conc 33.3 g/dL (31.8-35.4); Mean Corpuscular Hemoglobin 29.7 pg (27.0-31.2); Mean Corpuscular Volume 89.2 fl (81-99); Mean Platelet Volume 7.8 fl (7.4-10.4); Monocytes # 0.5 K/mm3 (0.1-1.0); Monocytes % 4.6 % (1.7-9.3); Neutrophils # 7.3 K/mm3 (1.8-7.8); Platelet Count 301 K/mm3 (142-424); Red Blood Count 4.78 M/mm3 (4.20-5.40); Red Cell Distribution Width 13.3 % (11.5-17.5); White Blood Count 11.1 K/mm3 (4.8-10.8)
[2023-07-03 14:38] LABS: Urine Pregnancy, HCG Qual. Negative (Negative)
[2023-07-03 15:26] LABS: Alanine Aminotransferase 22 U/L (12-78); Albumin Level 4.3 g/dl (3.5-5.0); Albumin/Globulin Ratio 1.3 (1.1-1.8); Alkaline Phosphatase 99 U/L (38-126); Anion Gap 16.3 mEq/L (5-15); Aspartate Amino Transferase 21 U/L (14-36); Bilirubin,Total 0.3 mg/dl (0.2-1.3); Blood Urea Nitrogen 12 mg/dl (7-17); Calcium 9.6 mg/dl (8.4-10.2); Carbon Dioxide 19 mmol/L (22.0-30.0); Chloride 110 mmol/L (98-107); Estimated Glomerular Filt Rate 103 ml/min (>60); GFR (African American) 124 ML/MIN (>60); Globulin 3.3 g/dL (1.3-3.2); Glucose 94 mg/dl (74-100); Potassium 4.3 mmoL/L (3.5-5.1); Sodium 141 mmol/L (136-145); Total Protein,Serum 7.6 g/dl (6.3-8.2)
== END ==
PROVIDERS: PCP Nurse Practitioner Family; Visit Provider Nurse Practitioner
DX: J03.00 Acute streptococcal tonsillitis, unspecified (principal); J35.01 Chronic tonsillitis; Z01.812 Encounter for preprocedural laboratory examination
CPT/HCPCS: 36415; 80053; 81025; 85025

== ENCOUNTER 2023-07-09 06:50 | Day surgery (SDC) | payer MEDICAID, SELFPAY ==
[2023-07-09] VITALS (11 sets, daily range): BP systolic 106–144; BP diastolic 58–80; PULSE 56–91; RESP 16–18; TEMP 36.1–36.9; O2SAT 95–98; BMI 42.5
--- NOTE | 2023-07-09 07:22 | ECG_ITS ---
APPROVED REPORT Exam: Resting ECG HR:64 bpm ECG Measurements Heart Rate 64 AXES CO 148 P 44 QRSd 98 QRS 41 QT 396 T 17 QTc 406 Conclusion SINUS RHYTHM NORMAL ECG UNCONFIRMED REPORT Electronically signed by : Ronn Benson MD 07/10/2023 17:23:56
--- NOTE | 2023-07-09 07:43 | P.PNANES_ITS ---
[facility] Disclaimer: The information contained in this section may have been updated after the patient was seen, as this information can be updated by other users. Medical History Chronic streptococcal tonsillitis History of COVID-19 Obstructive tonsil Surgical History History of section [place] teeth removed Family History Other No significant family history Social History Smoking Status: Never smoker alcohol intake: never substance use type: denies use current occupational status: employed Travel in the last 8 weeks: None [facility] Anesthesia Checklist Patient Identification Patient Identification: Arm Band and Verbal (Name & ) Structural Data Admitted From: Home Planned Operative Procedure/s: Tonsillectomy Consent for Planned Operative Procedure(s) Verified: Yes NPO Status Verified Time NPO: 00:00 Chart Verification Results Verified: CBC, BMP and HCG Additional verifications Anesthesia Reactions: Yes (NAUSEA AND VOMITING) Hx Blood Transfusions: No Blood Transfusion Reaction: No Airway Assessment Mallampati Score:: Class I C-Spine Mobility Assessed: Yes TMJ Mobility Assessed: Yes Dentition: Good Dentition Neurological Assessment Level of Consciousness: Awake Hx Seizures: No Numbness or tingling in extremities: No Anesthesia Plan Anesthesia Risk discussed: Yes Anesthesia Plan: Verified ASA Class: II Anesthesia Type: General
--- NOTE | 2023-07-09 08:49 | P.PNANES_ITS ---
[facility] Anesthesia Record Part I Anesthesia Record I Intake, IV Amount: 800 Hydration: Adequate Estimated blood loss (mL): 5 Urine output (mL): 0 Blood Products used (#): none Blood Pressure: 132/71 SaO2: 98 Pulse Rate: 91 Airway Patency: Patent Respiratory Rate: 16 Temperature: 97 F Patient is:: Drowsy and Stable Stable to PACU at:: 08:45
--- NOTE | 2023-07-09 08:49 | EXP.OP.NOTE ---
Date of procedure: 07/09/23 Pre-op Diagnosis:: Chronic tonsillitis Post-op Diagnosis:: Same Procedure performed:: Tonsillectomy Surgeon:: Toni Herzog III, MD [employer] OPERATOR:: Toi Baltazar Anesthesia: GETA Estimated blood loss (mL): 20 Operative findings:: Chronically inflamed cryptic tonsils Operative note:: The patient was brought to the operating room placed her general endotracheal anesthesia. She was then placed in the Belkis position and a McIvor mouthgag was used to better expose the oral cavity and oropharynx. The adenoid pad was palpated and inspected and noted to be nonobstructing. The right tonsil was then dissected free from its underlying fascial and muscular attachments using electrocautery dissection. Any bleeding spots were spot coagulated with the suction cautery device. The left tonsil was removed in a similar fashion. Patient was observed for approximately 5 minutes without evidence of further bleeding. The wound was irrigated with sterile water solution. I then injected half percent Marcaine with epinephrine into the tonsillar fossa approximately 3 mL total. Patient stomach contents were aspirated clear and she was taken to recovery in good condition Condition: stable Disposition: PACU Complications:: None
--- NOTE | 2023-07-09 14:09 | EXP.ANES.II ---
[facility] Anesthesia Record Part II Anesthesia Record Part II Discharge Time: 09:10 Destination: Surgical Day Care (OP Surgery) PACU nurse assessment reviewed?: Yes Patient Condition:: Good Anesthesia Complications:: None Swallowing reflex intact?: Yes Airway Patency: Patent Cyanosis?: No Blood Pressure: 136/67 SaO2: 97 Respiratory Rate: 17 Pulse Rate: 63 Temperature: 97.9 F Mental Status: Alert & Oriented Pain level:: 2 Nausea and/or vomitting:: None Intake, IV Amount: 0 Hydration: Adequate
== END 2023-07-09 09:51 | disposition home or self-care (01) ==
PROVIDERS: PCP Nurse Practitioner Family; Visit Provider Otolaryngology
PROC: (CPT 42826; principal; 2023-07-09 08:45)
DX: J35.01 Chronic tonsillitis (principal)
CPT/HCPCS: 42826; 93005; J2405

== ENCOUNTER → 2023-07-23 13:36 | Outpatient (CLI) | payer MEDICAID, SELFPAY ==
--- NOTE | 2023-07-23 13:36 | US_ITS ---
PROCEDURE: US TRANSVAGINAL CLINICAL INDICATION: iud in place COMPARISON: No exams were available for comparison FINDINGS: Transvaginal sonographic images of the pelvis were obtained. UTERUS: 9.3 cm x 4.9 cmx 4.1 cm with a combined endometrial thickness of 14.2mm. An IUD is located in the lower uterine segment but mostly in the upper cervix. It is 2.3 cm from the fundus of the uterus. LEFT OVARY: 3.7 cmx2.8 cmx0 cm with a volume of 11.3ml. Numerous small follicles in the left ovary RIGHT OVARY: 3.5 cmx 2.1 cmx2.2 cm with a volume of 8.3ml. Follicle in the right ovary measuring 1.9 cm x 1.9 cm x 1.5 cm it there are several other small follicles. Both ovaries are seen and appear normal. Doppler flow to both ovaries are seen. There is no fluid in the cul-de-sac. IMPRESSION: 1. Anteverted bulky uterus. 2. The IUD is in the lower uterine segment and upper cervix. 3. Ovaries are seen and appear normal. The right ovary has a 1.9 centimeter dominant follicle. 4. No fluid in the cul-de-sac. Dictated by: Emeterio Ge MD 07/23/2023 16:38 Emeterio Ge MD in [place] 07/23/2023 16:38
== END ==
PROVIDERS: PCP Nurse Practitioner Family; Visit Provider Obstetrics & Gynecology
DX: Z97.5 Presence of (intrauterine) contraceptive device (principal)
CPT/HCPCS: 76830

== ENCOUNTER → 2023-08-16 12:32 | Outpatient (CLI) | payer MEDICAID, SELFPAY ==
--- NOTE | 2023-08-16 12:32 | US_ITS ---
PROCEDURE: US TRANSVAGINAL CLINICAL INDICATION: iud in place COMPARISON: No exams were available for comparison FINDINGS: Transabdominal sonographic images of the pelvis were obtained. UTERUS: 9.3 cm x 5.1 cmx 3.9 cm with a combined endometrial thickness of 9.2mm. There is an IUD low in the uterine cavity but above the cervix. LEFT OVARY: 3.5 cmx 2.6 cmx1.9cm with a volume of 8.9ml. There are several small follicles RIGHT OVARY: 2.8 cmx 2.0 cmx1.8 cm with a volume of 5.4ml. There several small follicles Both ovaries are seen and appear normal. Doppler flow to both ovaries are seen. There is no fluid in the cul-de-sac. IMPRESSION: 1. IUD within the lower uterine cavity. It is above the internal cervical os. 2. Both ovaries are seen and appear normal. Each has a number of small follicles. 3. No fluid in the cul-de-sac. Dictated by: Emeterio Ge MD 08/16/2023 14:47 Emeterio Ge MD in [facility] 08/16/2023 14:47
== END ==
PROVIDERS: PCP Nurse Practitioner Family; Visit Provider Obstetrics & Gynecology
DX: Z30.431 Encounter for routine checking of intrauterine contraceptive device (principal); Z97.5 Presence of (intrauterine) contraceptive device
CPT/HCPCS: 76830

== ENCOUNTER 2025-06-05 16:04 | Outpatient (CLI) | payer MEDICAID, SELFPAY ==
--- NOTE | 2025-06-05 16:00 | US_ITS ---
PROCEDURE: US TRANSVAGINAL CLINICAL INDICATION: Needs JENNA for IUD placement COMPARISON: US US TRANSVAGINAL from 07/23/2023 FINDINGS: Transvaginal sonographic images of the pelvis were obtained. UTERUS: 8.9cm x 5.0cmx 4.3cm anteverted with a combined endometrial thickness of 9.5mm. A scar is seen. There is an IUD within the uterine cavity that appears to be in the correct position. LEFT OVARY: 2.4cmx1.4cmx1.9cm with a volume of 3.4ml. There are multiple small peripheral follicles. RIGHT OVARY: 2.6 cmx 2.0cmx1.6 cm with a volume of 4.4ml. There are multiple small peripheral follicles. Both ovaries are seen and appear normal. Doppler flow to both ovaries are seen. There is no fluid in the cul-de-sac. IMPRESSION: 1. Anteverted uterus normal in shape and size. The endometrium measures 9.5 mm at the fundus. 2. There is an IUD within the uterine cavity in the correct position. 3. Both ovaries are seen and appear normal. They both have multiple small peripheral follicles. 4. No fluid in the cul-de-sac. Dictated by: Emeterio Ge MD 06/05/2025 17:15 Emeterio Ge MD in [facility] 06/05/2025 17:15
--- OUTSIDE RECORDS SUMMARY | 2025-06-05 16:06 | XMS_ITS | Continuity of Care Document ---
Author Organization [facility] Address [address] [place] [id number] Assessment No assessment recorded. Plan of Treatment Reminders Order Date Submit Date Provider Last Modified By Organization Details Last Modified Time Details Appointments None recorded. Lab None recorded. Referral None recorded. Procedures None recorded. Surgeries None recorded. Imaging None recorded. Medication Orders Bactrim DS 800 mg-160 mg tablet 025 025 [facility], [address] [place] [address], [id number], 5 17:44:10 Medrol (Bo) 4 mg tablets in a dose pack 025 025 [facility], [address] [place] [address], [id number], 5 17:44:11 Patient TargetsNo targets recorded. Patient InstructionsNo instructions recorded. Reason for Referral None Reported. Problems Name Problem SNOMED Code Status Onset Date Resolution Date Notes Provider Name and Address Organization Details Recorded Time Disorder of upper respirat ory system 264692091 Completed 201709/23/2018 Problem Code: J06.9; Problem Code Type: ICD-10; Not Available [facility] 22:19:45 Acute upper respirat ory infectio n of multiple sites Completed 201709/23/2018 Problem Code: 465.8; Problem Code Type: ICD-9; Not Available [facility] 22:19:45 Tobacco dependen ce caused by cigarett es 35710651055 839704 Active 2021 Problem Code: F17.210; Problem Code Type: ICD-10; Not Available [facility] 22:19:45 Uses depot contrace ption 297777363 Active 2021 Not Available [facility] 22:19:45 Finding of body mass index 483079228 Active 2021 Problem Code: Z68.41; Problem Code Type: ICD-10; Not Available [facility] 22:19:45 Granulom a annulare 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 17:09:06 Superfic ial follicul itis 137253489 Active 2024 Lona Fonseca, [employer] [address] [place] [address] , [employer] 17:10:52 Problem Notes None recorded. Procedures Surgical History Date Name Laterality Status Provider Name and Address Organization Details Recorded Time classical section completed HUBERT PAREDES [employer]. 07/28/2022 16:57:41 Imaging Results None recorded. Procedure Notes None recorded. Medical Equipment None Reported. Allergies No known drug allergies Medications Name Sig Start Date Stop Date Status Note LastModified by Organization Details LastModified Time terbinafine HCl 1 % topical cream APPLY A THIN LAYER OF CREAM TOPICALLY TO RASH ONCE DAILY USE FOR 1 WEEK AFTER RASH CLEARS active Not Available Not Available No t Available ketoconazol e 2 % shampoo APPLY TOPICALLY TO SKIN AND HAIR, LEAVE ON FOR 5 TO 10 MINUTES BEFORE RINSING OFF ONCE DAILY 04/21 completed Not Available Not Available Not Available azithromyci n 250 mg tablet TAKE 2 TABLETS (500 MG) BY ORAL ROUTE ONCE DAILY FOR 1 DAY THEN 1 TABLET (250 MG) BY ORAL ROUTE ONCE DAILY FOR 4 DAYS 04/21 completed Not Available Not Available Not Available fluconazole 150 mg tablet TAKE 1 TABLET BY MOUTH THREE TIMES A WEEK WITH FOOD 04/21 completed Not Available Not Available Not Available prednisone 20 mg tablet TAKE 2 TABLETS BY MOUTH ONCE DAILY FOR 5 DAYS 06/04 completed Not Available Not Available Not Available Maxalt 10 mg tablet Take 1 tablet as needed by oral route as directed. 04/02 completed Not Available Not Available Not Available sulfamethox azole 800 mg-trimetho prim 160 mg tablet TAKE ONE TABLET BY MOUTH every 12 hours FOR 10 DAYS active Not Available Not Available No t Available ibuprofen 400 mg tablet TAKE TWO TABLETS BY MOUTH EVERY 6 HOURS NEEDED FOR MILD TO MODERATE PAIN --TAKE WITH FOOD-- 07/28 completed Not Available Not Available Not Available methylpredn isolone 4 mg tablets in a dose pack take ONE DOSE PACKAGE BY MOUTH as directed active Not Available Not Available No t Available medroxyprog esterone 150 mg/mL intramuscul ar suspension Inject 1 mL every 3 months by intramusc ular route. 06/04 completed Not Available Not Available Not Available amoxicillin 875 mg-potassiu m clavulanate 125 mg tablet TAKE 1 TABLET BY MOUTH TWICE DAILY FOR 13 DAYS 06/12 completed Not Available Not Available Not Available oxycodone 5 mg tablet TAKE ONE TABLET BY MOUTH EVERY 6 HOURS NEEDED FOR MODERATE TO SEVERE PAIN MAY CAUSE DROWSINES S 07/28 completed Not Available Not Available Not Available ferrous sulfate 07/28 completed Not Available Not Available Not Available Multivitami ns 07/28 completed Not Available Not Available Not Available Vitals Date Recorded Body weight Body temperature Heart rate Oxygen saturation Oxygen saturation in Arterial blood by Pulse oximetry Systolic And Diastolic Provider Name and Address Organization Details Last Updated DateTime 5 640387 g 99.3 [degF] 81 /min 97 % 97 % 135/69 mm[Hg] HUBERT PAREDES [employer] 5 16:53:57 Social History Question Answer Notes LastModified by Organizat ion Details LastModified Time Tobacco Smoking Status Current Every Day Smoker Tamika brownlee, [employer] 01/02/2023 09:15:58 Do You Have An Advance Directive? No Information not available 07/28/2022 Is Your Home Air Conditioned? Yes Information not available 07/28/2022 Are You Blind Or Do You Have Difficulty Seeing? No Information not available 07/28/2022 In The 14 Days Before Symptom Onset, Have You Had Close Contact With A Laboratory-confir med COVID-19 While That Case Was Ill? No Information not available 07/28/2022 Have You Been To An Area Known To Be High Risk For COVID-19? No Information not available 07/28/2022 Are You Deaf Or Do You Have Serious Difficulty Hearing? No Information not available 07/28/2022 What Type Of Diet Are You Following? REGULAR Information not available 07/28/2022 Are There Any Guns Present In Your Home? No Information not available 07/28/2022 Do You Have A Medical Power Of Clinical Faculty? No Information not available 07/28/2022 What Was The Date Of Your Most Recent Tobacco Screening? 04/21/2025 Information not available 04/21/2025 What Is Your Current Pack Years? 10packyears Information not available 07/28/2022 Do You Have Any Pets? Yes Information not available 07/28/2022 What Is Your Relationship Status? Single Information not available 07/28/2022 Do You Use Your Seat Belt Or Car Seat Routinely? Yes Information not available 06/04/2023 Are You Sexually Active? Yes Information not available 07/28/2022 Do You Have Smoke And Carbon Monoxide Detectors In Your Home? Yes Information not available 07/28/2022 At What Age Did You Start Smoking Tobacco? 17 Information not available 07/28/2022 Are You Passively Exposed To Smoke? Yes Information no t available 07/28/2022 Are There Any Smokers In Your House? Yes Information not available 07/28/2022 How Much Tobacco Do You Smoke? 1 PPD Information not available 07/28/2022 Do You Use Sunscreen Routinely? No Information not available 07/28/2022 Has Tobacco Cessation Counseling Been Provided? Yes Information not available 07/28/2022 On What Date Was Tobacco Cessation Counseling Provided? 06/12/2023 [email or web address] Information not available 06/12/2023 How Many Years Have You Smoked Tobacco? 5 Information not available 07/28/2022 Have You Recently Traveled Abroad? No Information not available 07/28/2022 Do You Have Difficulty Walking Or Climbing Stairs? No Information not available 07/28/2022 Are You Currently In School? No Information not available 07/28/2022 Do You Have Any Dietary Restrictions? No Information not available 07/28/2022 Sex: Female Functional Status Question Answer Note LastModified by [employer] Details LastModified Time Do you use any illicit or recreational drugs? No Information not available 07/28/2022 Do you or have you ever used any other forms of tobacco or nicotine? No Information not available 07/28/2022 What is your level of alcohol consumption? None Information not available 07/28/2022 Are you currently employed? No Information not available 07/28/2022 Do you have difficulty doing errands alone? No Information not available 07/28/2022 Are you able to care for yourself independently? Yes Information not available 07/28/2022 Do you have difficulty dressing, bathing, grooming, or toileting? No Information not available 07/28/2022 Mental Status Question Answer Note LastModified by Organization D etails LastModified Time Do you have difficulty concentrating, remembering or making decisions? No Information no t available 07/28/2022 Family History Relationship Description Onset Age of this Age Resolved Age Notes LastModified by Organization Details LastModified Time Father No current problems or disability [email or web address] Not available 07/28 16:53:56 Mother No current problems or disability [email or web address] Not available 07/28 16:53:56 Medical History No medical history recorded. Gynecological History Statement/Question Response Date of Last Pap Smear Obstetrics History GPAL:G 0 P 0 0 0 0 Immunizations Vaccine Type Date Status Note Provider Nam alexis and Address Organization Details Recorded Time Influenza, split virus, quadrivalent, preservative [address] [facility] 10/13/2022 16:50:11 meningococcal MCV4, unspecified formulation 0 completed HUBERT MYNEAR null, [employer] 10/13/2022 16:50:11 DTaP, unspecified formulation 9 completed HUBERT MYNEAR null, [employer] 10/13/2022 16:50:11 DTaP, unspecified formulation 3 completed HUBERT MYNEAR null, [employer] 10/13/2022 16:50:11 Hib (PRP-OMP) 0 completed HUBERT MYNEAR null, [employer] 10/13/2022 16:50:11 DTaP, unspecified formulation 0 completed HUBERT MYNEAR null, [employer] 10/13/2022 16:50:11 Hib-Hep B 0 completed HUBERT MYNEAR null, [employer] 10/13/2022 16:50:11 Hep B, adolescent or pediatric 9 completed HUBERT MYNEAR null, [employer] 10/13/2022 16:50:11 MMR 3 completed HUBERT MYNEAR null, [employer] 10/13/2022 16:50:11 Hib-Hep B 9 completed HUBERT MYNEAR null, [employer] 10/13/2022 16:50:11 varicella 0 completed HUBERT MYNEAR null, [employer] 10/13/2022 16:50:11 MMR 3 completed HUBERT MYNEAR null, [employer] 10/13/2022 16:50:11 Tdap 0 completed HUBERT MYNEAR null, [employer] 10/13/2022 16:50:11 DTaP, unspecified formulation 0 completed HUBERT MYNEAR null, [employer] 10/13/2022 16:50:11 IPV 9 completed HUBERT MYNEAR null, [employer] 10/13/2022 16:50:11 IPV 0 completed HUBERT MYNEAR null, [employer] 10/13/2022 16:50:11 IPV 0 completed HUBERT MYNEAR null, [employer] 10/13/2022 16:50:11 varicella 6 completed HUBERT MYNEAR null, [employer] 10/13/2022 16:50:11 IPV 3 completed HUBERT MYNEAR null, [employer] 10/13/2022 16:50:11 Past Encounters Encounter ID Performer Location Encounter Start Date Encounter Closed Date Diagnosis/Indication Diagnosis SNOMED-CT Code Diagnosis ICD10 Code Diagnosis Note [id number] Lona Fonseca [address] [address] 04/21/2025 16:45:37 04/21/2025 17:20:16 Granuloma annulare 10747736 L92.0 Superficia l folliculitis 073703672 L73.9 Use the hibiclens soap to bathe. LEFT breast. Health Concerns Section Related Observation LastModified by Organization Detai ls LastModified Time None Recorded Concern Status LastModified by Organization Details LastModified Time None Recorded Payers Encounter Date Sequence Insurance Name Policy Number Policy Hernadez Covered Member ID Hernadez Member ID Guarantor Name 04/21/2025 1 [employer] (MEDICAID REPLACEMENT - HMO) Lizeth Pham [id number] Lizeth Pham Notes Date Note Type Note Provider Name and Address Organization Details Recorded Time 04/21/2025 text/html General Rash/Ski n LesionReported by PatientHPIFor quality, patient reportspainful,weharshad dewitt. For aggravating factors, patient reportsclothing,exerci se, andbathing. For associated symptoms, patient reportsobesitybut reportsno fever,no cold symptoms,no nausea,no vomiting,no diarrhea,no urinary symptoms,no asthma, andno depression. For location, patient reportschest,arm, andlegs. For severity, patient reportsmoderate. For duration, patient reportshas noted for 2-3 weeks. For onset/timing, patient reportsgradual onset. For context, patient reportsno new detergents or skin productsandno one else with similar rash.ROS as noted in the HPI Was seen at [facility] and given antifungal cream. She has annular lesions on arms and legs and a wet purulent submammary rash Lona Fonseca, C[address] [place], [address], [facility] [employer] 05/11/2025 20:12:25 OBGyn Episode No OBEpisode recorded.
--- OUTSIDE RECORDS SUMMARY | 2025-06-05 16:06 | XMS_ITS | Data Portability ---
Author Organization [facility] [employer] [place] - [facility] Address [address] [place] [address] Assessment No assessment recorded. Plan of Treatment Reminders Order Date Submit Date Provider Last Modified By Organization Details Last Modified Time Details Appointments None recorded. Lab rapid flu (A+B) [address], [address], 3 18:06:56 rapid strep group A, throat [address], [address], 3 18:06:56 rapid SARS CoV 2 Ag, QL, [place], upper respiratory specimen [address], [address], 3 18:06:56 Referral gynecologis t referral 2022 023 [email or web address] Marah Ragland DO, [address], [place], [address], 3 20:20:15 Procedures None recorded. Surgeries None recorded. Imaging None recorded. Medication Orders Bactrim DS 800 mg-160 mg tablet 2024 025 [facility], [address] [place] [address], [address], 5 17:44:10 Medrol (Bo) 4 mg tablets in a dose pack 2024 025 [facility], [address] [place] [address], [address], 5 17:44:11 azithromyci n 250 mg tablet 2022 023 [email or web address], [address] [place] [address], [address], 5 16:54:16 medroxyprog esterone 150 mg/mL intramuscul ar suspension 2022 023 [email or web address] Not available 3 13:53:18 medroxyprog esterone 150 mg/mL intramuscul ar suspension 2022 023 [email or web address] Not available 13:53:18 Patient TargetsNo targets recorded. Patient InstructionsNo instructions recorded. Reason for Referral Rhia Referral for Us es depot contraception Referring Physician: Lona Fonseca, Family Medicine, Encounter Date: 04/02/2023 Results Created Date Observation Date Name Description Value Unit Range Abnormal Flag Note LastModifiedBy Organization Detail LastModifiedTime 06/12/2006/12/2023 rapid SARS CoV 2 Ag, QL, [place], upper respi rator y speci men SARS CoV Ag positi ve Not Available [address], [address], 06/12/2023 15:57:14 06/12/20 23 06/12/2023 rapid flu (A+B) Flu A negati ve Not Available [address], [address], 06/12/2023 15:57:12 06/12/20 23 06/12/2023 rapid flu (A+B) Flu B negati ve Not Available [address], [address], 06/12/2023 15:57:12 06/12/20 23 06/12/2023 rapid strep group A, throa t Strep positi ve Not Available [address], [address], 06/12/2023 15:57:13 05/27/20 23 05/27/2023 CT, neck, soft tissu e, w/ contr ast No observ ation record ed. [address], [place], [place], [address], 05/28/2023 09:39:24 07/10/20 23 07/09/2023 elect esthela russ am No observ ation record ed. [address], [place], [place], [address], 07/10/2023 17:36:53 07/23/20 23 07/23/2023 US, trans vagin al No observ ation record ed. [address], [place], [place], [address], 07/23/2023 17:57:41 08/16/20 23 08/16/2023 US, trans vagin al No observ ation record ed. [address], [place], [place], [address], 08/20/2023 08:47:09 Result Notes None recorded. Problems Name Problem SNOMED Code Status Onset Date Resolution Date Notes Provider Name and Address Organization Details Recorded Time Disorder of upper respirat ory system 623491378 Completed 201709/23/2018 Problem Code: J06.9; Problem Code Type: ICD-10; Not Available [facility] 09/05/202 2 22:19:45 Acute upper respirat ory infectio n of multiple sites Completed 201709/23/2018 Problem Code: 465.8; Problem Code Type: ICD-9; Not Available [facility] 22:19:45 Tobacco dependen ce caused by cigarett es 91341659826 072825 Active 2021 Problem Code: F17.210; Problem Code Type: ICD-10; Not Available [facility] 22:19:45 Uses depot contrace ption 634430410 Active 2021 Not Available [facility] 22:19:45 Finding of body mass index 640036670 Active 2021 Problem Code: Z68.41; Problem Code Type: ICD-10; Not Available [facility] 22:19:45 Granulom a annulare 34504591 Active 2024 Lona Fonseca APRN [address] [place] [address] , [employer] 17:09:06 Superfic ial follicul itis 635752817 Active 2024 Lona Fonseca APRN [address] [place] [address] , [employer] 17:10:52 Problem Notes None recorded. Procedures Surgical History Date Name Laterality Status Provider Name and Address Organization Details Recorded Time classical section completed HUBERT PAREDES [employer] 07/28/2022 16:57:41 Imaging Results None recorded. Procedure [...] Available Not Available Vitals Date Recorded Body height Body mass index (BMI) Body weight Body temperature Heart rate Oxygen saturation Oxygen saturation in Arterial blood by Pulse oximetry Systolic And Diastolic Provider Name and Address Organization Details Last Updated DateTime 3 160.02 cm 41.7 kg/m2 314344. 64 g 97 [degF] 80 /min 99 % 99 % 127/71 mm[Hg] HUBERT PAREDES [facility] [employer] 3 17:13:41 Date Recorded Body height Body mass index (BMI) Body weight Body temperature Heart rate Oxygen saturation Oxygen saturation in Arterial blood by Pulse oximetry Systolic And Diastolic Provider Name and Address Organization Details Last Updated DateTime 3 160.02 cm 42.5 kg/m2 605618. 17 g 97.8 [degF] 100 /min 98 % 98 % 119/69 mm[Hg] HUBERT [employer] 3 17:30:09 Date Recorded Body weight Body temperature Heart rate Oxygen saturation Oxygen saturation in Arterial blood by Pulse oximetry Systolic And Diastolic Provider Name and Address Organization Details Last Updated DateTime 5 177364 g 99.3 [degF] 81 /min 97 % 97 % 135/69 mm[Hg] HUBERT [employer] 5 16:53:57 Date Recorded Body height Body mass index (BMI) Body weight Body temperature Heart rate Oxygen saturation Oxygen saturation in Arterial blood by Pulse oximetry Systolic And Diastolic Provider Name and Address Organization Details Last Updated DateTime 3 160.02 cm 42.3 kg/m2 214168. 14 g 98.1 [degF] 113 /min 97 % 97 % 130/86 mm[Hg] HUBERT [employer] 3 13:53:14 Date Recorded Body height Body mass index (BMI) Body weight Body temperature Heart rate Oxygen saturation Oxygen saturation in Arterial blood by Pulse oximetry Systolic And Diastolic Provider Name and Address Organization Details Last Updated DateTime 3 160.02 cm 42.5 kg/m2 325727. 17 g 101.5 [degF] 122 /min 98 % 98 % 108/68 mm[Hg] Norma Elizabeth [employer] 3 15:57:01 Social History Question Answer Notes LastModified by Organizat ion Details LastModified Time Tobacco Smoking Status Current Every Day Smoker Tamika brownlee [email or web address]. 01/02/2023 09:15:58 Do You Have An Advance [...] Do You Have A Medical Power Of Landscaper? No Information not available 07/28/2022 What Was [...] Functional Status Question Answer Note LastModified by Organizat ion Details LastModified Time Do you use [...] Vaccine Type Date Status Note Provider Nam e and Address Organization Details Recorded Time Influenza, split virus, quadrivalent, preservative 8 completed HUBERT brownlee [facility] [employer] 10/13/2022 16:50:11 meningococcal MCV4, unspecified formulation 0 completed HUBERT MYNEAR null, [employer] 10/13/2022 16:50:11 DTaP, unspecified formulation 9 completed HUBERT MYNEAR null, [employer] 10/13/2022 16:50:11 DTaP, unspecified formulation 3 completed HUBERT MYNEAR null, [employer] 10/13/2022 16:50:11 Hib (PRP-OMP) 0 completed HUBERT MYNEAR null, [employer] 10/13/2022 16:50:11 DTaP, unspecified formulation 0 completed HUBERT MYNEAR null, [employer] 10/13/2022 16:50:11 Hib-Hep B 0 completed HUBERT MYNEAR null, [employer] 10/13/2022 16:50:11 Hep B, adolescent or pediatric 9 completed HUBERT MYNEAR null, [employer] 10/13/2022 16:50:11 MMR 3 completed HUBERT MYNEAR null, [employer] 10/13/2022 16:50:11 Hib-Hep B 9 completed HUBERT MYNEAR null, [employer] 10/13/2022 16:50:11 varicella 0 completed HUBERT MYNEAR null, [employer] 10/13/2022 16:50:11 MMR 3 completed HUBERT MYNEAR null, [employer] 10/13/2022 16:50:11 Tdap 0 completed HUBERT MYNEAR null, [employer] 10/13/2022 16:50:11 DTaP, unspecified formulation 0 completed HUBERT MYNEAR null, [employer] 10/13/2022 16:50:11 IPV 9 completed HUBERT MYNEAR null, [employer] 10/13/2022 16:50:11 IPV 0 completed HUBERT MYNEAR null, [employer] 10/13/2022 16:50:11 IPV 0 completed HUBERT MYNEAR null, [employer] 10/13/2022 16:50:11 varicella 6 completed HUBERT MYNEAR null, [employer] 10/13/2022 16:50:11 IPV 3 completed HUBERT MYNEAR null, [employer] 10/13/2022 16:50:11 Past Encounters Encounter ID Performer Location Encounter Start Date Encounter Closed Date Diagnosis/Indication Diagnosis SNOMED-CT Code Diagnosis ICD10 Code Diagnosis Note [id number] [address] 07/28/2022 16:46:12 07/28/2022 17:13:34 Uses depot contraception 509950824 Z30.013 [facility] 28533897 G43.90 9 [id number] [place] [address] 0 10/13/2022 16:34:32 10/13/2022 17:12:16 Uses depot contraception 423707290 Z30.013 [id number] [place] [address] 0 01/05/2023 17:08:25 01/05/2023 17:24:00 Uses depot contraception 886367948 Z30.230 [id number] [place] [address] 0 04/02/2023 17:20:49 04/03/2023 12:01:53 Uses depot contraception 238331249 Z30.013 Effectiven ess, correct use, advantages /disadvant ages, common side effects, serious complicati ons, contra-ind ications/p recautions and return to fertility were reviewed for the following: Combined oral contracept tamika (pills/pat ch/ring), Progestero ne-only pills, DepoProver a injection, Nexplanon implant,Sk yla IUD, Mirena IUD, Paragard IUD, Condoms, Diaphragm, Spermacide s, Permanent sterilizat ion (tubal ligation & Essure), Vasectomy for partner. [id number] [place] [address] 06/04/2023 13:45:21 06/04/2023 14:39:31 Chronic tonsillitis 41854299 J35.01 Continue the augmentin, take it with food, and add daily probiotic. (samples were given). If diarrhea progresses , she was inst to RTC for CDIFF testing and possibly antibiotic therapy change. She must keep scheduled surgery appt. Smoking cessation was also encouraged . [id number] [place] [address] 0 06/12/2023 15:42:37 06/12/2023 16:37:12 Fever 047447143 R50.9 Streptococ nika sore throat 46580127 J02.0 COVID-19 183626539 U07.1 Body mass index 40+ - severely obese 808797710 Z68.41 [id number] [place] [address] 0 04/21/2025 16:45:37 04/21/2025 17:20:16 Granuloma annulare 03262617 L92.0 Superficia l folliculitis 501621704 L73.9 Use the hibiclens soap to bathe. LEFT breast. Health Concerns Section Related Observation LastModified by Organization Detai ls LastModified Time None Recorded Concern Status LastModified by Organization Details LastModified Time None Recorded Advance Directives Directive N: Payers Insurance Date Sequence Insurance Name Policy Number Policy Hernadez Covered Member ID Hernadez Member ID Guarantor Name 07/27/2022 1 *SELF PAY* Justin Pham 05/12/2025 1 PASSPORT BY [employer] (MEDICAID REPLACEMENT - HMO) Lizeth Pham [id number] Lizeth Pham Notes Date Note Type Note Provider Name and Address Organization Details Recorded Time 3 text/html OCP CheckReported by PatientHPIFor associated symptoms, patient reportsirregular menses. For context, patient reportsreason for starting ocps:irregular mensesandmenstrual cycle disorder.LMP 12/2022ROS as noted in the [facility] Emergency Room Admission Information Have you been to the emergency room since the last clinic visit? No Have you been in the hospital since your last visit? No Treatment Selection Please select all that apply: I require treatment/medication for chronic pain - No I have had a heart catheterization - No I have had arterial stents placed - No I have had a colonoscopy - No I have had a hysterectomy - No I regularly have a PAP smear - No I regularly have a mammogram - No Procedure Locations Has the Patient ever had a colonoscopy? No Has the Patient ever had a pap smear? Yes Please select the date of the Patient's last pap smear. 12/25/2020 Has the patient ever had a mammogram? No Dentist Confirmation Do you have a Dentist? No Imported from [employer] on 07/28/2022 Lona Fonseca APRN [address] [place] [address], [id number], [facility] [employer], [employer]. 01/05/2023 17:17:46 3 text/html OCP CheckReported by PatientHPIFor associated symptoms, patient reportsirregular menses. For context, patient reportsreason for starting ocps:irregular mensesandmenstrual cycle disorder.LMP 02/2023. Patient would like to be referred to [facility] to have a Mirena placement. She says she has gained weight due to Depo injections.ROS as noted in the [facility] Emergency Room Admission Information Have you been to the emergency room since the last clinic visit? No Have you been in the hospital since your last visit? No Treatment Selection Please select all that apply: I require treatment/medication for chronic pain - No I have had a heart catheterization - No I have had arterial stents placed - No I have had a colonoscopy - No I have had a hysterectomy - No I regularly have a PAP smear - No I regularly have a mammogram - No Procedure Locations Has the Patient ever had a colonoscopy? No Has the Patient ever had a pap smear? Yes Please select the date of the Patient's last pap smear. 12/25/2020 Has the patient ever had a mammogram? No Dentist Confirmation Do you have a Dentist? No Imported from [employer] on 07/28/2022 Lona Fonseca APRN [address] [place], [address], [email or web address]. 04/02/2023 17:45:10 3 text/html Hospitalization Contact RecordReported by PatientHospitalization Contact RecordFor follow up, patient reportshospital: __ [facility])anddate of discharge: (please enter in format 'mm/dd/yyyy') (05/28/23).Patient was admitted to [facility] through the emergency room due to severe recurrent streptococcal tonsillitis. She has had now 4-5 episodes of strep tonsillitis in the past 1 year. She states on the date she presented to the emergency room her tonsils were so swollen she was unable to control her secretions, and the ER had concern for her airway. She was kept overnight for IV antibiotics and IV steroids. She did see ENT last week after discharge and is scheduled for tonsillectomy at the first available at the end of June. She continues on the on the 13-day course of Augmentin, but states she developed diarrhea and abdominal cramping last p.m. She admits she has not been taking the antibiotic with food. She snores loudly. Has nonrestorative sleep due to chronic tonsillar hypertrophy. She has completed the course of oral steroids that she was discharged home with. Lona Fonseca APRN [address] [place], [address], [employer] 06/04/2023 16:11:47 3 text/html pt here today with c/o sore throat, fever and body aches that started today. pt states that she has been treated for strep throat recently and had an overnight stay in the hospital. on exam, pt appears ill, throat with white blisters and white coating on tongue. rapid strep and covid positive. i will order abx. educated pt on new med. pt voiced understanding. increase fluids. pt to quarantine x5 days, rest, tylenol/ibuprofen for fever/pain, vit d, zinc, ER for soa. return for worsening symptoms. pt is scheduled for tonsillectomy on 07/09. Meseret Abarca APRN [address] [place], [address], [employer], [employer]. 06/12/2023 17:48:07 5 text/html General Rash/Skin LesionReported by PatientHPIFor quality, patient reportspainful,harshad davis. For aggravating factors, patient reportsclothing,exercise, andbathing. For associated symptoms, patient reportsobesitybut reportsno fever,no cold symptoms,no nausea,no vomiting,no diarrhea,no urinary symptoms,no asthma, andno depression. For location, patient reportschest,arm, andlegs. For severity, patient reportsmoderate. For duration, patient reportshas noted for 2-3 weeks. For onset/timing, patient reportsgradual onset. For context, patient reportsno new detergents or skin productsandno one else with similar rash.ROS as noted in the HPI Was seen at [facility] and given antifungal cream. She has annular lesions on arms and legs and a wet purulent submammary rash Lona Fonseca APRN [address] [place], [address], [employer] 05/11/2025 20:12:25 OBGyn Episode No OBEpisode recorded.
== END 2025-06-05 23:59 | disposition home or self-care (01) ==
LOC: RAD 16:04
PROVIDERS: PCP Nurse Practitioner Family; Visit Provider Obstetrics & Gynecology
DX: Z30.431 Encounter for routine checking of intrauterine contraceptive device (principal)
CPT/HCPCS: 76830

== ENCOUNTER 2025-07-21 09:43 | Outpatient (CLI) | payer MEDICAID, SELFPAY ==
[2025-07-21 08:53] VITALS: BMI 42.5
[2025-07-21 10:12] LABS: Hematocrit 41.5 % (37.0-47.0); Hemoglobin 14.3 g/dL (12.2-16.2); Immature Granulocytes % 0.4 %; Mean Corpuscular HGB Conc 34.5 g/dL (31.8-35.4); Mean Corpuscular Hemoglobin 29.9 pg (27.0-31.2); Mean Corpuscular Volume 86.8 fl (81-99); Nucleated Red Blood Cells % 0 %; Platelet Count 322 K/mm3 (142-424); Red Blood Count 4.78 M/mm3 (4.20-5.40); Red Cell Distribution Width-SD 39.0 fL; White Blood Count 9.4 K/mm3 (4.8-10.8)
[2025-07-21 10:20] LABS: Alanine Aminotransferase 21 U/L (12-78); Albumin Level 4.6 g/dl (3.5-5.0); Albumin/Globulin Ratio 1.4 (1.1-1.8); Alkaline Phosphatase 92 U/L (38-126); Anion Gap 13.0 mEq/L (5-15); Aspartate Amino Transferase 24 U/L (14-36); Bilirubin,Total 0.6 mg/dl (0.2-1.3); Blood Urea Nitrogen 10 mg/dl (7-17); Calcium 9.8 mg/dl (8.4-10.2); Carbon Dioxide 20 mmol/L (22.0-30.0); Chloride 109 mmol/L (98-107); Creatinine Clearance Estimated 101 mL/min (50-200); Creatinine,Serum 0.70 mg/dl (0.52-1.04); Estimated Glomerular Filt Rate 101 ml/min (>60); GFR (African American) 122 ML/MIN (>60); Globulin 3.2 g/dL (1.3-3.2); Glucose 94 mg/dl (74-100); Potassium 4.0 mmoL/L (3.5-5.1); Sodium 138 mmol/L (136-145); Total Protein,Serum 7.8 g/dl (6.3-8.2)
[2025-07-21 10:50] LABS: HCG Qualitative, Serum Negative (Negative)
== END 2025-07-21 23:59 | disposition home or self-care (01) ==
LOC: PREOP 09:43
PROVIDERS: PCP Nurse Practitioner Family; Visit Provider Obstetrics & Gynecology
DX: Z01.812 Encounter for preprocedural laboratory examination (principal)
CPT/HCPCS: 80053; 84703; 85025

== ENCOUNTER 2025-07-24 06:05 | Day surgery (SDC) | payer MEDICAID, SELFPAY ==
[2025-07-21 13:14] VITALS: BMI 42.5
[2025-07-24] VITALS (11 sets, daily range): BP systolic 112–148; BP diastolic 48–77; PULSE 57–81; RESP 16–24; TEMP -13.4–38; O2SAT 96–98; BMI 42.5
--- NOTE | 2025-07-24 | US_ITS ---
Ultrasound Sonograher: PROCEDURE: US PELVIC CLINICAL INDICATION: COMPARISON: US US TRANSVAGINAL from 07/23/2023 US US TRANSVAGINAL from 08/16/2023 US US TRANSVAGINAL from 06/05/2025 FINDINGS: Transabdominal sonographic images of the pelvis were obtained. Intraoperative removal of the IUD under ultrasound guidance was performed. There appears to be the arms of the IUD in the anterior aspect of the uterine cavity. There is fluid within the uterine cavity. IMPRESSION: 1. The removal of the IUD under ultrasound guidance was unsuccessful. Dictated by: Emeterio Ge MD 07/24/2025 18:04 Emeterio Ge MD in OV 07/24/2025 18:04
[2025-07-24] MEDS: LACTATED RINGERS 1000ML 1,000 ML 25 ML IV (06:41)
--- NOTE | 2025-07-24 06:51 | P.PNANES_ITS ---
[facility] Disclaimer: The information contained in this section may have been updated after the patient was seen, as this information can be updated by other users. Medical History Cryptic tonsil History of COVID-19 Obstructive tonsil Chronic streptococcal tonsillitis Surgical History Status post tonsillectomy Status post tonsillectomy [place] teeth removed History of section X2 Family History Other Family history of cancer Social History (Updated 07/24/25 @ 06:21 by Cheryl Stein RN) Smoking Status: Current every day smoker tobacco type: cigarettes packs per day: 1 alcohol intake: never substance use type: denies use current occupational status: employed Travel in the last 8 weeks?: None Have you lived/traveled outside US in past 30 days?: No Contact w/someone who lives/traveled outside US past 30 days?: No Exposure to someone with infectious disease in past 14 days?: No Do you have a fever (greater than 100.4 F or 38 C)?: No Have you tested positive for COVID-19?: No Exposed to someone with COVID-19 in past 14 days?: No Do you have a sore throat?: No Do you have a cough?: No Do you have any weakness?: No Are you experiencing any nausea/vomitting?: No Do you have any diarrhea?: No Are you experiencing any unusual bleeding?: No Do you have any muscle aches/pain?: No Do you have any abdominal pain?: No Are you experiencing loss of taste or smell?: No [facility] Anesthesia Checklist Patient Identification Patient Identification: Arm Band and Family Structural Data Admitted From: Home Planned Operative Procedure/s: Lap salpingectomy. Removal of IUD. Consent for Planned Operative Procedure(s) Verified: Yes Verified Documents: Surgical Consent and History and Physical NPO Status Verified Time NPO: 00:00 Additional verifications Patient : No Anesthesia Reactions: Yes (NAUSEA AND VOMITING) Hx Blood Transfusions: No Blood Transfusion Reaction: No Cephalosporin Allergy: No Previous Colonoscopy: No Airway Assessment Mallampati Score:: Class III C-Spine Mobility Assessed: Yes TMJ Mobility Assessed: Yes Dentition: Good Dentition Neurological Assessment Level of Consciousness: Awake, Alert, Appropriate and Follows Commands Hx Seizures: No Numbness or tingling in extremities: No Anesthesia Plan Anesthesia Risk discussed: Yes ASA Class: II Anesthesia Type: MAC Preoperative Comments Pre-Operative Comments: PONV.
[2025-07-24] MEDS: BUPIVACAINE 0.5% 30ML VIAL 150 MG (08:03)
--- NOTE | 2025-07-24 08:56 | XR_ITS ---
FINAL REPORT CLINICAL HISTORY: Intraoperative IUD visualization COMPARISON: None FINDINGS: SINGLE VIEW PELVIS: A single view of the pelvis was obtained. There is an IUD projecting over the lower sacrum. The soft tissues are otherwise unremarkable. There is no acute osseous abnormality. IMPRESSION: IUD projecting over the lower sacrum. Reviewed, Interpreted and Dictated by Tessie Jorgensen MD Transcribed by Yumiko Garcias Authenticated and . [facility]
--- NOTE | 2025-07-24 09:34 | EXP.OP.NOTE ---
Date of procedure: 07/24/25 Pre-op Diagnosis:: 1. Desires sterilization 2. Desires IUD removal Post-op Diagnosis:: 1. Desires sterilization 2. Desires IUD removal Procedure performed:: 1. Diagnostic hysteroscopy 2. Transabdominal pelvic ultrasound 3. Pelvic X-ray 4. Diagnostic laparoscopy 5. Laparoscopic bilateral salpingectomy Surgeon:: Brenda Munson DO APPLIANCE SERVICE TECHNICIAN:: Neto Zarate Anesthesia: GETA Estimated blood loss (mL): 10 Operative findings:: 1. Bimanual examination revealed an anteverted 6-week size uterus with smooth contour without any adnexal masses. Appropriate uterine descent/mobility. Adequate vaginal introitus 2. Hysteroscopic exam revealed that the external cervical os was easily dilated but the internal cervical os was unable to be dilated multiple attempts were made with dilators. The hysteroscope was inserted and the operative port was used to further assess the cavity and attempt IUD removal. Dilation and removal and access to the uterine cavity was attempted under ultrasound guidance. The internal cervical os/lower uterine segment near where the scar was was unable to be dilated and access was not achieved past this point. Ultrasound and pelvic x-ray showed the IUD in the fundal position within the endometrium. Laparoscopic exam revealed normal-appearing uterus, ovaries, fallopian tubes and liver. 3. There were adhesions noted at the right adnexa. Small amount of bladder adhesions, primarily filmy and not significant. Operative note:: Lizeth Pham is a 25-year-old G2, P2, 2 prior deliveries who presents desiring permanent sterilization and IUD removal. She has had 2 IUD placed as the first 1 was in the cervical canal. Reports that she has had some pain but primarily anxiety associated with the IUD. While she has been counseled extensively and understands that it is a very reliable form of contraception anytime she misses her cycle it is causing healthcare anxiety and when she cannot palpate her strings this is stressful for her. She desires to proceed with laparoscopic bilateral salpingectomy and IUD removal. Risk and benefits were reviewed at length. The patient was taken to the operating room where general anesthesia was obtained and noted to be adequate. SCDs were placed for thromboembolism prophylaxis and found to be working. The patient was placed in the dorsal lithotomy position using yellowfin stirrups. Timeout verified the correct patient and procedure. The patient was prepped and draped in a usual sterile fashion. A catheter was used to drain her bladder. Miguel cervical dilators were used to serially and progressively dilate the cervix. A long Yuly was used to advance for the fundus and attempt to grab the IUD without success, this was attempted 3 times. The hysteroscope was assembled and placed in the external cervical os. It was hooked to normal saline and hydrodissection was used. I was able to get to the level of the internal cervical os/lower uterine segment with hysterotomy was previously made but unable to dilate or pass the hysteroscope past this point. Hysteroscope was removed and I attempted again to serially dilate I could not get past a 14 mm dilator. Hysteroscope was replaced and I tried to use the operative port to advance an operative instrument into the fundus and grasped removed the IUD without success. Attempt was made with a flexible cystoscope and it was unable to be passed through the canal. Ultrasound was called to the room to assist in gaining entry to the endometrium as well as confirming that the IUD was in the endometrium. I was unable to remove the IUD with ultrasound assistance. Pelvic x-ray was obtained and showed the IUD in the correct orientation. At this time my attention was turned to the laparoscopic portion and decision was made to abort IUD removal for fear of injury and causing harm. All vaginal instruments were removed 10mL of Marcaine with epinepherine was injected infraumbilically and a scalpel was used to make a 5 mm infraumbilical incision with the assistance from a hemostat. The skin was tented and Optiview blunt trocar was introduced into the abdomen in the usual fashion. CO2 gas was connected with an initial pressure of 6 mmHg noted. Pneumoperitoneum was created to a pressure of 15 mmHg. The laparoscopic camera was inserted and a quick survey of the abdomen revealed grossly normal anatomy. The uterus appeared to be anteverted with irregular contour suggestive of fibroids and/or adenomyosis. There were no fallopian tube, ovarian, bowel, omental, or liver abnormalities noted. The patient was placed in Trendelenburg. 10mLs of local anesthetic was injected and a 5mm incision was then made in the right lower quadrant with careful attention to avoid the rectus muscles and vasculature and under direct laparoscopic visualization a blunt trocar was introduced into the abdominal cavity. This process was repeated on the left side with an 8 mm trocar. The fallopian tubes were identified on the cornu of the uterus and followed out to the ovaries which revealed grossly appearing anatomy. A grasper was used to elevate the left fallopian tube. The Ligasure was used to grasp the fimbriated end of the fallopian tube, ensuring complete removal of the fimbriae, it was clamped, coagulated and transected. This process was repeated serially working towards the uterus to allow complete removal of the fallopian tube. Careful attention was given to transected the Mesosalpinx proximal to the fallopian tube. The fallopian tube was removed from the abdominal cavity and passed off the operative field to be sent to pathology. Hemostasis was noted. Attention was then turned to the right fallopian tube and the process was repeated. Hemostasis was noted and the tube was removed along with the trocar and handed off the operative field to be sent to pathology. Pneumoperitoneum reduced, and all ports removed. The 3 abdominal incisions were closed with a single simple interrupted suture using 4-0 Monocryl. Dermabond was applied to each skin incision. All counts were correct x2, per nursing. The patient was extubated, stable, and transferred to the PACU. She will be discharged after meeting all DC criteria to include voiding, ambulating and tolerating PO independently. Condition: stable Disposition: same day Specimens:: Bilateral fallopian tubes Complications:: None
--- NOTE | 2025-07-24 09:44 | EXP.ANES.I ---
[facility] Anesthesia Record Part I Anesthesia Record I Intake, IV Amount: 900 Hydration: Adequate Estimated blood loss (mL): 10 Urine output (mL): 0 Blood Products used (#): none Blood Pressure: 112/61 SaO2: 96 Pulse Rate: 81 Airway Patency: Patent Respiratory Rate: 24 Temperature: 7.9 F Patient is:: Drowsy and Stable Stable to PACU at:: 09:40
--- NOTE | 2025-07-24 10:03 | SUR.PREOP ---
pt urinated 100mL of blood tinged urine at this time
--- NOTE | 2025-07-24 10:07 | SUR.PHASEI ---
pt tolerating ice water at this time, no c/o n/v
--- NOTE | 2025-07-24 13:48 | SUR.PHASEII ---
1041: Pt out of phase two. Ambulatory, independent, and alert and oriented. Discharge instructions have been given. Waiting for Dr. Munson to write prescriptions and fill out d/c summary. 1135: D/C summary is in and medications sent to pharmacy per Dr. Munson. Pt's family instructed to pull up to clinic pharmacy to retrieve meds.
--- NOTE | 2025-07-24 16:02 | EXP.ANES.II ---
[facility] Anesthesia Record Part II Anesthesia Record Part II Discharge Time: 10:41 Destination: Surgical Day Care (OP Surgery) PACU nurse assessment reviewed?: Yes Patient Condition:: Good Anesthesia Complications:: None Swallowing reflex intact?: Yes Airway Patency: Patent Cyanosis?: No Blood Pressure: 137/71 SaO2: 98 Respiratory Rate: 16 Pulse Rate: 57 Temperature: 97.5 F Mental Status: Alert & Oriented Pain level:: 0 Nausea and/or vomitting:: None Intake, IV Amount: 0 Hydration: Adequate
== END 2025-07-24 11:35 | disposition home or self-care (01) ==
PROVIDERS: PCP Nurse Practitioner Family; Visit Provider Obstetrics & Gynecology
PROC: (CPT 58661; principal; 2025-07-24 07:30)
DX: Z30.2 Encounter for sterilization (principal); Z30.432 Encounter for removal of intrauterine contraceptive device; Z53.09 Procedure and treatment not carried out because of other contraindication; N32.89 Other specified disorders of bladder; F17.210 Nicotine dependence, cigarettes, uncomplicated; K59.00 Constipation, unspecified; Z86.16 Personal history of COVID-19; Z79.899 Other long term (current) drug therapy
CPT/HCPCS: 58301; 58555; 58661; 72170; 76856; J0665; J1100; J2003; J2250; J2405; J2704; J3010; J7120